=== PATIENT | male | born 1945 | race Caucasian/White ===

== ENCOUNTER → 2017-11-21 | Outpatient (CLI) | payer OTHER ==
[~2017-11-21] MED LIST: BRIM0.1S OPL; TIMO0.5S2 OPL
[2017-11-21 12:47] LABS: BASO % 0.2 %; BASO ABS # 0.02 K/uL (0-0.2); EOS % 0.1 %; EOS ABS # 0.01 K/uL (0-0.5); HEMATOCRIT 44.9 % (42-52); HEMOGLOBIN 15.6 g/dL (14.0-18.0); IG# 0.02 K/uL (0.00-0.02); LYMPH % 20.7 %; LYMPH ABS # 1.77 K/uL (1.2-3.4); MEAN CELL VOLUME 88.6 fL (80-100); MEAN CORPUSCULAR HEMOGLOBIN 30.8 pg (25-34); MEAN CORPUSCULAR HGB CONC 34.7 g/dl (32-36); MEAN PLATELET VOLUME 11.4 fL (7.4-10.4); MONO % 5.7 %; MONO ABS # 0.49 K/uL (0.11-0.59); NEUT % 73.1 %; NEUT ABS # 6.26 K/uL (1.4-6.5); PLATELET COUNT 194 K/uL (130-400); RED CELL DISTRIBUTION WIDTH CV 13.4 % (11.5-14.5); RED CELL DISTRIBUTION WIDTH SD 43.8 fL (36.4-46.3); WHITE BLOOD COUNT 8.57 K/uL (4.8-10.8)
[2017-11-21 13:07] LABS: ALBUMIN 4.1 gm/dl (3.4-5.0); ALT/SGPT 32 U/L (12-78); AST/SGOT 24 U/L (15-37); BLOOD UREA NITROGEN 16 mg/dl (7-18); CALCIUM 9.1 mg/dl (8.5-10.1); CARBON DIOXIDE 24 mmol/L (21-32); CREATININE 0.97 mg/dl (0.60-1.40); GLUCOSE 108 mg/dl (70-99); POTASSIUM 3.7 mmol/L (3.5-5.1); SODIUM 137 mmol/L (136-145)
[2017-11-21 13:17] LABS: ALKALINE PHOSPHATASE 87 U/L (45-117); TOTAL PROTEIN 8.3 gm/dl (6.4-8.2)
== END | disposition home or self-care (01) ==
LOC: C.LABPVFM 07:51
PROVIDERS: ATTEND Family Medicine
DX: R53.83 Other fatigue (principal); G47.9 Sleep disorder, unspecified

== ENCOUNTER 2020-05-05 13:06 | Observation (INO) ==
[2020-05-05] MEDS ORDERED: SODIUM CHLORIDE 0.9% 500 ML IV ONE ×3 (13:34→16:24)
[2020-05-05 14:05] LABS: Hematocrit (blood only) 33.4 % (42-52); Hemoglobin 10.2 g/dL (14.0-18.0); Immature Granulocytes # (auto) 0.07 K/uL (0.00-0.02); Immature Granulocytes % (auto) 0.5 %; Lymphocytes % (auto) 6.6 %; Mean Corpuscular Hemoglobin 25.2 pg (25-34); Mean Corpuscular Hgb Conc 30.5 g/dL (32-36); Mean Corpuscular Volume 82.5 fL (80-100); Mean Platelet Volume 10.2 fL (7.4-10.4); Monocytes # (auto) 0.37 K/uL (0.11-0.59); Monocytes % (auto) 2.5 %; Neutrophils # (auto) 13.62 K/uL (1.4-6.5); Neutrophils % (auto) 90.4 %; Platelet Count 249 K/uL (130-400); RDW Coefficient of Variation 23.3 % (11.5-14.5); RDW Standard Deviation 69.9 fL (36.4-46.3); Red Blood Count 4.05 M/uL (4.7-6.1); White Blood Count 15.06 K/uL (4.8-10.8)
[2020-05-05 14:13] LABS: Appearance Urine Clear (Clear); Bilirubin Urine Negative (Negative); Blood Urine Negative (Negative); Color Urine Yellow; Glucose Urine UA Negative (Negative); Ketones Urine Negative (Negative); Leukocyte Esterase Urine Negative (Negative); Nitrite Urine Negative (Negative); Protein Urine Negative (Negative); Specific Gravity Urine 1.011 (1.000-1.030); Urobilinogen Urine Negative (Negative)
[2020-05-05 14:16] LABS: INR 1.3 (0.9-1.1); Partial Thromboplastin Ratio 1.2; Prothrombin Time 13.5 Seconds (9.0-12.0)
[2020-05-05 14:23] LABS: Alanine Aminotransferase 52 U/L (12-78); Albumin Level 1.4 gm/dl (3.4-5.0); Aspartate Aminotransferase 214 U/L (15-37); BUN Creatinine Ratio 35.1 (10-20); Bilirubin Direct 0.6 mg/dl (0-0.2); Blood Urea Nitrogen 31 mg/dl (7-18); Calcium 8.7 mg/dl (8.5-10.1); Carbon Dioxide 25 mmol/L (21-32); Chloride 101 mmol/L (98-107); Est GFR (African American) 96.5; Est GFR (Non-African American) 83.3; Glucose 111 mg/dl (70-99); Lipase 841 U/L (73-393); Potassium 3.8 mmol/L (3.5-5.1); Sodium 139 mmol/L (136-145)
--- NOTE | 2020-05-05 14:24 | XRay Report ---
XR chest 1V portable CLINICAL HISTORY: Atypical chest pain COMPARISON STUDY: 04/29/2020 FINDINGS: There is a left subclavian central venous catheter unchanged in position. The cardiac and m ediastinal contours remain stable. There is a persistent right pleural effusion with associated right lower lobe atelectasis/consolidation. Underlying emphysema is suspected.[ IMPRESSION: 1. Pulmonary emphysema 2. Small right pleural effusion with associated right lower lobe atelectasis/consolidation ACT 112: Negative or not required by law. Electronically signed by: Blaise Chandler M.D. 05/05/2020 2:23 PM
[2020-05-05 14:32] LABS: Albumin Globulin Ratio 0.3 (0.9-2); Alkaline Phosphatase 251 U/L (45-117); Globulin 5.4 gm/dl (2.5-4.0); NT Pro B Type Natriuretic Pept 4731 pg/ml (0-900); Phosphorus 3.9 mg/dl (2.5-4.9); Total Protein 6.8 gm/dl (6.4-8.2); Troponin I < 0.015 ng/ml (0-0.045)
[2020-05-05 14:33] LABS: Anisocytosis Present
[2020-05-05 14:44] LABS: T4 Free Thyroxine 1.06 ng/dl (0.8-1.6)
[2020-05-05] MEDS ORDERED: OPTIRAY 320 125ml IV ONE (14:59)
--- NOTE | 2020-05-05 15:20 | CT Scan Report ---
CT ANGIOGRAPHY OF THE CHEST, PULMONARY EMBOLUS PROTOCOL CLINICAL HISTORY: Shortness of breath. Hypertension. Evaluate for pulmonary embolus. COMPARISON STUDY: Chest CT March 09, 2020. Chest radiograph May 05, 2020. TECHNIQUE: Following IV administration of 120 mL of Optiray-320, helical axial images of the chest we re obtained utilizing the pulmonary embolus protocol. Maximal intensity projections and sagittal and coronal reformats were viewed on an independent 3D workstation. IV contrast was administered withou t complication. Automated exposure control was utilized for the study. A dose lowering technique wa s utilized adhering to the principles of ALARA. CT DOSE: 962.63 mGy.cm FINDINGS: This exam is moderately compromised by respiratory motion. No central or lobar pulmonary e mboli are identified. The segmental and subsegmental pulmonary arteries are suboptimally assessed giv en respiratory motion. Mild cardiomegaly is noted. A left subclavian [id number] is in place. No en larged axillary, mediastinal or hilar lymph nodes are present. There is no pneumothorax. There are sm all bilateral pleural effusions. Right lower lobe opacity favors segmental atelectasis. The size and number of several pulmonary nodules has increased since CT of March 09, 2020. A 6 mm right lower lobe n odule on image [id number] is new since prior exam. An 8 mm left lower lobe nodule on image 89 previously measured 5 mm. No suspicious lesions within the bony thorax are noted. Extensive hepatic metastatic disease is better depicted on the CT of the abdomen and pelvis which will be reported separately. Per ihepatic ascites is noted. IMPRESSION: 1. No pulmonary emboli identified although segmental and subsegmental pulmonary arteries suboptimally assessed due to respiratory motion. 2. Small bilateral pleural effusions. Segmental right lower lobe opacity favors atelectasis. 3. Mild increase in size and number small pulmonary nodules since prior chest CT. These are suspiciou s for metastases. 4. Extensive hepatic metastatic disease, better depicted on the CT of the abdomen and pelvis which wi ll be reported separately. ACT 112: Negative or not required by law. Electronically signed by: Mack Joseph M.D. 05/05/2020 3:19 PM
--- NOTE | 2020-05-05 15:23 | CT Scan Report ---
CT SCAN OF THE ABDOMEN AND PELVIS WITH IV CONTRAST CLINICAL HISTORY: Generalized weakness. Colon cancer. COMPARISON STUDY: Abdominal CT dated 03/09/2020. TECHNIQUE: Following the IV administration of 120 cc of Optiray 320, CT scan of the abdomen and pelv is is performed from the lung bases to the proximal femora. Images are reviewed in the axial, sagitta l, and coronal planes. IV contrast was administered without complication. A dose lowering technique w as utilized adhering to the principles of ALARA. FINDINGS: Lung bases: The tip of a central venous infusion port terminates at the cavoatrial junction. The hear t is normal in size and without pericardial effusion. The coronary arteries are densely calcified. Th ere are small bilateral pleural effusions with associated atelectasis. Segmental atelectasis is noted the right lung base with elevation of the right hemidiaphragm. No airspace consolidation is seen typ ical for pneumonia. An 8 mm pulmonary nodule in the left lower lobe has increased in size from 03/09/20 20 and is consistent with a metastasis. Liver: The contrast-enhanced liver is enlarged and heterogeneous, measuring 25 cm in length. The live r is infiltrated by diffuse metastatic disease. There is no intrahepatic biliary ductal dilatation. T he hepatic veins and portal veins are patent. A 5 cm simple cyst is noted in the right lobe. Gallbladder: Unremarkable. Spleen: Normal in size and attenuation. Pancreas: Moderately atrophic and grossly unremarkable. Adrenal glands: Unremarkable. Kidneys: The contrast enhanced kidneys demonstrate mild cortical atrophy and are without hydronephros is. The kidneys enhance symmetrically. Abdominal vasculature: The abdominal aorta is normal in course and caliber noting mild atheroscleroti c calcification. Bowel: There is a large annular mass involving the transverse colon is seen on image #20 and 69. This measures 7.5 cm in length. Mildly enlarged pericolonic lymph nodes adjacent to the mass measure up t o 1 cm. There is no evidence of colonic obstruction. The small bowel appear normal in caliber. The ap pendix is normal as visualized. Peritoneum: There is a small volume of abdominopelvic ascites. No intraperitoneal free air is seen. T here is a fat-containing umbilical hernia. Lymphadenopathy: There is no upper abdominal, retroperitoneal, pelvic sidewall, or inguinal lymphaden opathy. Pelvic viscera: The prostate gland is enlarged and heterogeneous noting median lobe hypertrophy. The bladder wall is mildly thickened and trabeculated indicating chronic outlet obstruction. There is jayashree dence of previous left inguinal herniorrhaphy. Skeletal structures: The skeletal structures are osteopenic. Mild lumbosacral spondylosis is observed . There is a moderate compression deformity of T11. Mild compression deformities are noted in T12, L1 , L2, L3, and L4. No lytic or blastic lesions are seen. Soft tissues: There is mild body wall edema. IMPRESSION: 1. Hepatomegaly with evidence of diffuse hepatic metastatic disease. This is overall similar in appea brown to the 03/20/2020 examination. 2. Again seen is a large mass in the transverse colon. This is also similar in appearance to previous . There is no evidence of colonic obstruction. 3. Mildly enlarged pericolonic lymph nodes are again noted. These have modestly decreased in size fro m 03/09/2020. 4. A left lower lobe pulmonary metastasis has increased in size from 03/09/2020. 5. There is a small volume of abdominopelvic ascites. This is new from previous. 6. Small pleural effusions are new from previous. 7. Additional findings as above. ACT 112: Negative or not required by law. Electronically signed by: Kehinde Monzon M.D. 05/05/2020 3:22 PM
[2020-05-05] MEDS ORDERED: METOPROLOL TARTRATE 1 MG/ML VIAL IV STA ×2 (16:00→17:03)
--- NOTE | 2020-05-05 16:05 | Emergency Department Note ---
Impression & Plan Tachycardia, Dehydration, Metastatic disease, Peripheral edema, Hypoalbuminemia ED Provider Note NAME: NAOMY VILLATORO AGE: 74 SEX: M ARRIVES VIA: Walk-In INFORMANT: Patient, ED PROVIDER(S): Sanjeev Motley MD CHIEF COMPLAINT: Tachycardia PLAN: Disposition: Admit MEDICAL DECISION MAKING: The patient is a pleasant 74-year-old gentleman with a past medical history of recently diagnosed metastatic colon cancer currently undergoing chemotherapy (FOLFOX and Avastin) with first treatment on Saturday who presents emergency department for evaluation after home nurse who arrived to discontinue his infusion noted his heart rate to be in the 120s-130s with hypertension and so was referred to the emergency department. Patient has been followed for his tachycardia and edema and recent saw cardiology and had echo completed, which showed normal EF. He is on Metoprolol 25mg BID. The patient denies any particular complaints. The patient and his deny any fevers, chills, cough, congestion, nausea, vomiting, diarrhea, urinary symptoms. On arrival the patient is fatigued appearing but no acute distress, afebrile with heart rate in the 130-140s and vital signs otherwise stable. Initial EKG suspected to be sinus tachycardia with intermittent ectopic atrial beats with no overt acute ischemia. Chest x-ray does demonstrate pleural effusion in the setting of the patient's history of peripheral edema but no overt pneumonia or heart failure. WBC 15, nonspecific and decreased from prior value. H/H 10.2/33.4 similar to prior range of values. Platelets within normal limits. Chemistry without acidosis. BUN is 31 which is suggestive of component of dehydration despite the patient's third spacing in the setting of hypoalbuminemia with an albumin of 1.4. BNP is 4700 without prior values for comparison UA negative for infection. CTA of the chest was negative for PE. Otherwise CT of the abdomen pelvis redemonstrates the patient's known metastatic disease. Upon reevaluation the patient was feeling improved after IV fluid hydration with heart rate in the 100s. However upon attempt to repeat his EKG prior to discharge his heart rate again became tachycardic now to the 140s and appears regular. Suspect sinus tachycardia vs atrial tachycardia as some P waves appreciated and did improved initially with hydration. Paroxysmal aflutter/afib also possible. At this time I did reiterate to the patient that I would recommend admission however he is persistent that he would prefer to go home. He does take metoprolol twice daily and so we agreed to trial a dose of Lopressor but if unsuccessful he would agree to be admitted. Upon re-evaluation after 5mg IV lopressor and a total of 1L NSS patient gradually improved to upper 90s-100s. However, when repeat EKG was attempted his HR again increased to 130s-140s. Second dose was ordered. Given the patient's poor rate control, reasonable to admit for further management. He and his agreed. Case was discussed with Dr. Bess, admitting resident with Dr. Hanks, [facility] hospitalist, who will evaluate the patient for admission. Triage Nursing notes reviewed and agree them. Prior medical records reviewed Vital Signs: reviewed and remarkable for Tachycardia Differential diagnosis: Infection, dehydration, metabolic abnormality, hypo/hyperglycemia, electrolyte disturbance, anemia, hypoxia, cardiac sources, intracerebral event, toxicologic, neurologic, as well as other pathologies. ER treatment provided: See below. Diagnostics interpreted by me: ECG 1551: Sinus tachycardia with suspected atrial ectopic beats, 136 bpm, no overt ST elevation or depression, QTC 517, QRS 82. ECG 1700: Sinus tachycardia vs atrial tachycardia, 140 bpm, no overt ST elevation or depression. Cardiac Monitoring: An order for continuous cardiac monitoring was placed and demonstrated sinus tachycardia with suspected atrial ectopic beats, 136 bpm. Laboratory studies: See below Imaging studies: XR chest 1V portable CLINICAL HISTORY: Atypical chest pain COMPARISON STUDY: 04/29/2020 FINDINGS: There is a left subclavian central venous catheter unchanged in position. The cardiac and mediastinal contours remain stable. There is a persistent right pleural effusion with associated right lower lobe atelectasis/consolidation. Underlying emphysema is suspected.[ IMPRESSION: 1. Pulmonary emphysema 2. Small right pleural effusion with associated right lower lobe atelectasis/consolidation CT ANGIOGRAPHY OF THE CHEST, PULMONARY EMBOLUS PROTOCOL CLINICAL HISTORY: Shortness of breath. Hypertension. Evaluate for pulmonary embo jairo. COMPARISON STUDY: Chest CT March 09, 2020. Chest radiograph May 05, 2020. TECHNIQUE: Following IV administration of 120 mL of Optiray-320, helical axial images of the chest were obtained utilizing the pulmonary embolus protocol. Maximal intensity projections and sagittal and coronal reformats were viewed on an independent 3D workstation. IV contrast was administered without complication. Automated exposure control was utilized for the study. A dose lowering technique was utilized adhering to the principles of ALARA. CT DOSE: 962.63 mGy.cm FINDINGS: This exam is moderately compromised by respiratory motion. No central or lobar pulmonary emboli are identified. The segmental and subsegmental pulmonary arteries are suboptimally assessed given respiratory motion. Mild cardiomegaly is noted. A left subclavian [id number] is in place. No enlarged axillary, mediastinal or hilar lymph nodes are present. There is no pneumothorax. There are small bilateral pleural effusions. Right lower lobe opacity favors segmental atelectasis. The size and number of several pulmonary nodules has increased since CT of March 09, 2020. A 6 mm right lower lobe nodule on image [id number] is new since prior exam. An 8 mm left lower lobe nodule on image 89 previously measured 5 mm. No suspicious lesions within the bony thorax are noted. Extensive hepatic metastatic disease is better depicted on the CT of the abdomen and pelvis which will be reported separately. Perihepatic ascites is noted. IMPRESSION: 1. No pulmonary emboli identified although segmental and subsegmental pulmonary arteries suboptimally assessed due to respiratory motion. 2. Small bilateral pleural effusions. Segmental right lower lobe opacity favors atelectasis. 3. Mild increase in size and number small pulmonary nodules since prior chest CT. These are suspicious for metastases. 4. Extensive hepatic metastatic disease, better depicted on the CT of the abdomen and pelvis which will be reported separately. ACT 112: Negative or not required by law. CT SCAN OF THE ABDOMEN AND PELVIS WITH IV CONTRAST CLINICAL HISTORY: Generalized weakness. Colon cancer. COMPARISON STUDY: Abdominal CT dated 03/09/2020. TECHNIQUE: Following the IV administration of 120 cc of Optiray 320, CT scan of the abdomen and pelvis is performed from the lung bases to the proximal femora. Images are reviewed in the axial, sagittal, and coronal planes. IV contrast was administered without complication. A dose lowering technique was utilized adhering to the principles of ALARA. FINDINGS: Lung bases: The tip of a central venous infusion port terminates at the cavoatrial junction. The heart is normal in size and without pericardial effusion. The coronary arteries are densely calcified. There are small bilateral pleural effusions with associated atelectasis. Segmental atelectasis is noted the right lung base with elevation of the right hemidiaphragm. No airspace consolidation is seen typical for pneumonia. An 8 mm pulmonary nodule in the left lower lobe has increased in size from 03/09/2020 and is consistent with a metastasis. Liver: The contrast-enhanced liver is enlarged and heterogeneous, measuring 25 cm in length. The liver is infiltrated by diffuse metastatic disease. There is no intrahepatic biliary ductal dilatation. The hepatic veins and portal veins are patent. A 5 cm simple cyst is noted in the right lobe. Gallbladder: Unremarkable. Spleen: Normal in size and attenuation. Pancreas: Moderately atrophic and grossly unremarkable. Adrenal glands: Unremarkable. Kidneys: The contrast enhanced kidneys demonstrate mild cortical atrophy and are without hydronephrosis. The kidneys enhance symmetrically. Abdominal vasculature: The abdominal aorta is normal in course and caliber noting mild atherosclerotic calcification. Bowel: There is a large annular mass involving the transverse colon is seen on image #20 and 69. This measures 7.5 cm in length. Mildly enlarged pericolonic lymph nodes adjacent to the mass measure up to 1 cm. There is no evidence of colonic obstruction. The small bowel appear normal in caliber. The appendix is normal as visualized. Peritoneum: There is a small volume of abdominopelvic ascites. No intraperitoneal free air is seen. There is a fat-containing umbilical hernia. Lymphadenopathy: There is no upper abdominal, retroperitoneal, pelvic sidewall, or inguinal lymphadenopathy. Pelvic viscera: The prostate gland is enlarged and heterogeneous noting median lobe hypertrophy. The bladder wall is mildly thickened and trabeculated indicating chronic outlet obstruction. There is evidence of previous left inguinal herniorrhaphy. Skeletal structures: The skeletal structures are osteopenic. Mild lumbosacral spondylosis is observed. There is a moderate compression deformity of T11. Mild compression deformities are noted in T12, L1, L2, L3, and L4. No lytic or blast ic lesions are seen. Soft tissues: There is mild body wall edema. IMPRESSION: 1. Hepatomegaly with evidence of diffuse hepatic metastatic disease. This is overall similar in appearance to the 03/20/2020 examination. 2. Again seen is a large mass in the transverse colon. This is also similar in a ppearance to previous. There is no evidence of colonic obstruction. 3. Mildly enlarged pericolonic lymph nodes are again noted. These have modestly decreased in size from 03/09/2020. 4. A left lower lobe pulmonary metastasis has increased in size from 03/09/2020. 5. There is a small volume of abdominopelvic ascites. This is new from previous. 6. Small pleural effusions are new from previous. 7. Additional findings as above. ACT 112: Negative or not required by law. Consultation(s): Case was discussed with Dr. Bess, admitting resident with Dr. Arenas, [facility] hospitalist, who will evaluate the patient for admission. HPI: The patient is a pleasant 74-year-old gentleman with a past medical history of recently diagnosed metastatic colon cancer currently undergoing chemotherapy (FOLFOX and Avastin) with first treatment on Saturday who presents emergency department for evaluation after home nurse who arrived to discontinue his infus ion noted his heart rate to be in the 120s-130s with hypertension and so was referred to the emergency department. Patient has been followed for his tachycardia and edema and recent saw cardiology and had echo completed, which showed normal EF. He is on Metoprolol 25mg BID. The patient denies any p articular complaints. The patient and his deny any fevers, chills, cough, congestion, nausea, vomiting, diarrhea, urinary symptoms. ROS: See above HPI for pertinent positives & negatives. A total of 10 systems reviewed and were otherwise negative. PAST MEDICAL HISTORY:See Below PAST SURGICAL HISTORY:See Below FAMILY HISTORY:See Below SOCIAL HISTORY:See Below HOME MEDICATIONS:See Below ALLERGIES:See Below VITALS:See Below PHYSICAL EXAMINATION: GENERAL: Awake, alert, chronically ill-appearing, in no distress HENT: Normocephalic, atraumatic. Oropharynx with dry mucous membranes and otherwise unremarkable. EYES: Normal conjunctiva. Sclera non-icteric. NECK: Supple. No nuchal rigidity. FROM. No JVD. RESPIRATORY: Diminished at bases but otherwise clear to auscultation. CARDIAC: Tachycardic rate, normal rhythm. Extremities warm and well perfused. Pulses equal. ABDOMEN: Soft, non-distended. No tenderness to palpation. No rebound or guarding. No masses. RECTAL: Deferred. MUSCULOSKELETAL: Chest examination reveals no tenderness. The back is symme trical on inspection without obvious abnormality. There is no CVA tenderness to palpation. No joint edema. LOWER EXTREMITIES: Calves are equal size bilaterally and non-tender. 3+ pitting edema. No discoloration. NEURO: Normal sensorium. No sensory or motor deficits noted. SKIN: No rash or jaundice noted. ED COURSE: Critical Care: I have personally spent greater than 35 minutes of critical care time in the direct management of this patient. This includes bedside care, interpretation of diagnostic studies, and testing, discussion with consultants, patient, and family members, and other required patient management activities. This 35 minut es is in excess of all separately billable procedures. Sanjeev Motley MD Past Med/Surg History Medical History Anemia BPH (benign prostatic hyperplasia) per records/ denies Colon cancer Glaucoma Hyperlipidemia Metastases to the liver Surgical History History of hernia surgery x 2 right and left ingunial Hx of cataract surgery left Family History Denies family history of Ovarian cancer Prostate cancer Diabetes Breast cancer Colorectal cancer Hypertension Social History Smoking Status: Never smoker Tobacco Type: Cigarettes Second Hand Exposure: No; Hx Alcohol Use: No Hx Substance Use: No Preferred Language: Libyan Communication Ability: Effective Ibm Bpm Developer Required: No Beliefs That Will Affect Care: None marital status: Current Living Situation: Spouse current occupational status: retired Feels Safe at Home: Yes caffeine: No Dental Care, Regularly: No Physical Activity Frequency: 1-2 Times per Week Seatbelt Use: always Sunscreen Use: No Allergies Allergies Allergy/AdvReac Type Severity Reaction Status Date / Time ciprofloxacin Allergy Intermediate Rash Verified 05/05/20 14:48 Home Meds Home Medications Medication Instructions Recorded Confirmed dorzolamide 2 % eye drops 1 drp OPL TID ml 05/19/19 05/05/20 latanoprost 0.005 % eye drops 1 drp OPL HS ml 05/19/19 05/05/20 cholecalciferol (vitamin D3) 100 100 mcg PO QAM 04/11/20 05/05/20 mcg (4,000 unit) capsule furosemide 40 mg PO QAM 04/26/20 05/05/20 ondansetron HCl [Zofran] 4 mg PO DAILY PRN 04/26/20 05/05/20 potassium chloride [Klor-Con 10] 10 meq PO QAM 04/26/20 05/05/20 prochlorperazine maleate 10 mg PO Q6H PRN 04/26/20 05/05/20 Chemo Iv 0 mg IV UD 05/05/20 05/05/20 Previous Rx's Medication Instructions Recorded metoprolol tartrate 25 mg tablet 25 mg PO BID #60 tab 04/28/20 Results & Data (ED) Vital Signs Vital Signs - 24 hr 05/05/20 13:08 05/05/20 13:20 05/05/20 13:21 Temperature 36.4 C L Temperature Source Oral Pulse Rate 108 H 135 H 134 H Pulse Rate from SpO2 Sensor 132 H Respiratory Rate 20 21 18 Respiratory Effort / Characteristics Non-Labored Spontaneous Respiratory Depth Normal Blood Pressure 124/82 125/91 Blood Pressure Mean 96 106 Pulse Oximetry 98 96 Oxygen Delivery Method Sepsis Recent Fever Within 48 Hours No Sepsis New/Unexplained Change in Mental Status No Sepsis Action Taken by Nursing No Action Required 05/05/20 13:30 05/05/20 13:45 05/05/20 13:55 Temperature Temperature Source Pulse Rate 136 H 134 H Pulse Rate from SpO2 Sensor 129 H Respiratory Rate 19 20 Respiratory Effort / Characteristics Respiratory Depth Blood Pressure Blood Pressure Mean Pulse Oximetry 97 Oxygen Delivery Method Room Air Sepsis Recent Fever Within 48 Hours Sepsis New/Unexplained Change in Mental Status Sepsis Action Taken by Nursing 05/05/20 14:02 05/05/20 14:07 05/05/20 14:15 Temperature Temperature Source Pulse Rate 144 H 100 H Pulse Rate from SpO2 Sensor 101 H Respiratory Rate 19 19 Respiratory Effort / Characteristics Respiratory Depth Blood Pressure 128/89 Blood Pressure Mean 97 Pulse Oximetry 98 Oxygen Delivery Method Room Air Sepsis Recent Fever Within 48 Hours Sepsis New/Unexplained Change in Mental Status Sepsis Action Taken by Nursing 05/05/20 14:16 05/05/20 14:30 05/05/20 14:31 Temperature Temperature Source Pulse Rate 138 H 130 H 130 H Pulse Rate from SpO2 Sensor 137 H 130 H 130 H Respiratory Rate 19 19 19 Respiratory Effort / Characteristics Respiratory Depth Blood Pressure 133/98 Blood Pressure Mean 110 Pulse Oximetry 97 98 97 Oxygen Delivery Method Sepsis Recent Fever Within 48 Hours Sepsis New/Unexplained Change in Mental Status Sepsis Action Taken by Nursing 05/05/20 14:45 05/05/20 14:46 05/05/20 15:07 Temperature Temperature Source Pulse Rate 136 H 135 H 106 H Pulse Rate from SpO2 Sensor 136 H 135 H Respiratory Rate 21 21 8 L Respiratory Effort / Characteristics Respiratory Depth Blood Pressure 141/106 H Blood Pressure Mean 116 Pulse Oximetry 99 100 Oxygen Delivery Method Sepsis Recent Fever Within 48 Hours Sepsis New/Unexplained Change in Mental Status Sepsis Action Taken by Nursing 05/05/20 15:08 05/05/20 15:15 05/05/20 15:16 Temperature Temperature Source Pulse Rate 105 H 112 H Pulse Rate from SpO2 Sensor 106 H 114 H Respiratory Rate 25 H 24 Respiratory Effort / Characteristics Respiratory Depth Blood Pressure 130/91 151/101 H Blood Pressure Mean 101 126 Pulse Oximetry 97 96 Oxygen Delivery Method Sepsis Recent Fever Within 48 Hours Sepsis New/Unexplained Change in Mental Status Sepsis Action Taken by Nursing 05/05/20 15:22 05/05/20 15:30 05/05/20 15:45 Temperature Temperature Source Pulse Rate 141 H 102 H 104 H Pulse Rate from SpO2 Sensor 102 H Respiratory Rate 29 H 21 25 H Respiratory Effort / Characteristics Respiratory Depth Blood Pressure 139/109 H 134/92 133/92 Blood Pressure Mean 117 104 110 Pulse Oximetry 96 96 Oxygen Delivery Method Sepsis Recent Fever Within 48 Hours Sepsis New/Unexplained Change in Mental Status Sepsis Action Taken by Nursing 05/05/20 15:46 05/05/20 16:00 05/05/20 16:15 Temperature Temperature Source Pulse Rate 106 H 149 H 141 H Pulse Rate from SpO2 Sensor 106 H 146 H 141 H Respiratory Rate 23 34 H 22 Respiratory Effort / Characteristics Respiratory Depth Blood Pressure Blood Pressure Mean Pulse Oximetry 97 98 95 Oxygen Delivery Method Sepsis Recent Fever Within 48 Hours Sepsis New/Unexplained Change in Mental Status Sepsis Action Taken by Nursing 05/05/20 16:16 05/05/20 16:17 05/05/20 16:30 Temperature Temperature Source Pulse Rate 141 H 143 H 131 H Pulse Rate from SpO2 Sensor 143 H 131 H Respiratory Rate 24 23 Respiratory Effort / Characteristics Respiratory Depth Blood Pressure 139/106 H 139/106 H 134/100 Blood Pressure Mean 117 107 Pulse Oximetry 96 96 Oxygen Delivery Method Sepsis Recent Fever Within 48 Hours Sepsis New/Unexplained Change in Mental Status Sepsis Action Taken by Nursing 05/05/20 16:31 05/05/20 16:49 05/05/20 16:50 Temperature Temperature Source Pulse Rate 131 H 129 H 132 H Pulse Rate from SpO2 Sensor 131 H Respiratory Rate 22 24 25 H Respiratory Effort / Characteristics Respiratory Depth Blood Pressure 137/102 H Blood Pressure Mean 115 Pulse Oximetry 95 Oxygen Delivery Method Sepsis Recent Fever Within 48 Hours Sepsis New/Unexplained Change in Mental Status Sepsis Action Taken by Nursing 05/05/20 17:00 05/05/20 17:01 05/05/20 17:15 Temperature Temperature Source Pulse Rate 99 H 135 H 133 H Pulse Rate from SpO2 Sensor Respiratory Rate 27 H 24 23 Respiratory Effort / Characteristics Respiratory Depth Blood Pressure 142/89 H 135/99 Blood Pressure Mean 104 105 Pulse Oximetry 96 Oxygen Delivery Method Room Air Sepsis Recent Fever Within 48 Hours Sepsis New/Unexplained Change in Mental Status Sepsis Action Taken by Nursing 05/05/20 17:16 05/05/20 17:30 05/05/20 17:31 Temperature Temperature Source Pulse Rate 132 H 132 H 131 H Pulse Rate from SpO2 Sensor Respiratory Rate 24 22 21 Respiratory Effort / Characteristics Respiratory Depth Blood Pressure 138/102 H Blood Pressure Mean 109 Pulse Oximetry Oxygen Delivery Method Sepsis Recent Fever Within 48 Hours Sepsis New/Unexplained Change in Mental Status Sepsis Action Taken by Nursing 05/05/20 17:44 05/05/20 17:45 05/05/20 18:00 Temperature Temperature Source Pulse Rate 139 H 103 H 130 H Pulse Rate from SpO2 Sensor Respiratory Rate 27 H 30 H Respiratory Effort / Characteristics Respiratory Depth Blood Pressure 138/102 H Blood Pressure Mean Pulse Oximetry Oxygen Delivery Method Sepsis Recent Fever Within 48 Hours Sepsis New/Unexplained Change in Mental Status Sepsis Action Taken by Nursing 05/05/20 18:15 05/05/20 18:30 Temperature Temperature Source Pulse Rate 128 H 127 H Pulse Rate from SpO2 Sensor Respiratory Rate 25 H 23 Respiratory Effort / Characteristics Respiratory Depth Blood Pressure Blood Pressure Mean Pulse Oximetry Oxygen Delivery Method Sepsis Recent Fever Within 48 Hours Sepsis New/Unexplained Change in Mental Status Sepsis Action Taken by Nursing Laboratory Data Attestation: I reviewed the patient's lab results. Result diagrams: 05/05/20 13:45 05/05/20 13:45 Lab Results 05/05/20 05/05/20 05/05/20 Range/Units 13:45 13:45 13:45 WBC 15.06 H (4.8-10.8) K/uL RBC 4.05 L (4.7-6.1) M/uL Hgb 10.2 L (14.0-18.0) g/dL Hct 33.4 L (42-52) % MCV 82.5 (80-100) fL MCH 25.2 (25-34) pg MCHC 30.5 L (32-36) g/dL RDW Std Deviation 69.9 H (36.4-46.3) fL RDW Coeff of Kamille 23.3 H (11.5-14.5) % Plt Count 249 (130-400) K/uL MPV 10.2 (7.4-10.4) fL Immature Gran % (Auto) 0.5 % Neut % (Auto) 90.4 % Lymph % (Auto) 6.6 % [place] % (Auto) 2.5 % Eos % (Auto) 0.0 % Baso % (Auto) 0.0 % Neut # (Auto) 13.62 H (1.4-6.5) K/uL Lymph # (Auto) 1.00 L (1.2-3.4) K/uL [place] # (Auto) 0.37 (0.11-0.59) K/uL Eos # (Auto) 0.00 (0-0.5) K/uL Baso # (Auto) 0.00 (0-0.2) K/uL Immature Gran # (Auto) 0.07 H (0.00-0.02) K/uL Anisocytosis Present PT 13.5 H (9.0-12.0) Seconds INR 1.3 H (0.9-1.1) APTT 33.0 H (21.0-31.0) Seconds PTT Ratio 1.2 Sodium 139 (136-145) mmol/L Potassium 3.8 (3.5-5.1) mmol/L Chloride 101 (98-107) mmol/L Carbon Dioxide 25 (21-32) mmol/L Anion Gap 13.0 H (3-11) BUN 31 H (7-18) mg/dl Creatinine 0.90 (0.6-1.4) mg/dl Est Cr Clr Drug Dosing Not Reportable Est GFR ( Amer) 96.5 Est GFR (Non-Af Amer) 83.3 BUN/Creatinine Ratio 35.1 H (10-20) Glucose 111 H (70-99) mg/dl Calcium 8.7 (8.5-10.1) mg/dl Phosphorus 3.9 (2.5-4.9) mg/dl Magnesium 2.0 (1.8-2.4) mg/dl Total Bilirubin 1.0 (0.2-1) mg/dl Direct Bilirubin 0.6 H (0-0.2) mg/dl AST 214 H (15-37) U/L ALT 52 (12-78) U/L Alkaline Phosphatase 251 H (45-117) U/L Troponin I < 0.015 (0-0.045) ng/ml NT-Pro-B Natriuret Pep 4731 H (0-900) pg/ml Total Protein 6.8 (6.4-8.2) gm/dl Albumin 1.4 L (3.4-5.0) gm/dl Globulin 5.4 H (2.5-4.0) gm/dl Albumin/Globulin Ratio 0.3 L (0.9-2) Lipase 841 H (73-393) U/L TSH 5.340 H (0.300-4.500) uIu/ml Free T4 1.06 (0.8-1.6) ng/dl Urine Color Urine Appearance (Clear) Urine pH (4.5-7.5) Ur Specific [place] (1.000-1.030) Urine Protein (Negative) Urine Glucose (UA) (Negative) Urine Ketones (Negative) Urine Blood (Negative) Urine Nitrite (Negative) Urine Bilirubin (Negative) Urine Urobilinogen (Negative) Ur Leukocyte Esterase (Negative) 05/05/20 Range/Units 14:00 WBC (4.8-10.8) K/uL RBC (4.7-6.1) M/uL Hgb (14.0-18.0) g/dL Hct (42-52) % MCV (80-100) fL MCH (25-34) pg MCHC (32-36) g/dL RDW Std Deviation (36.4-46.3) fL RDW Coeff of Kamille (11.5-14.5) % Plt Count (130-400) K/uL MPV (7.4-10.4) fL Immature Gran % (Auto) % Neut % (Auto) % Lymph % (Auto) % [place] % (Auto) % Eos % (Auto) % Baso % (Auto) % Neut # (Auto) (1.4-6.5) K/uL Lymph # (Auto) (1.2-3.4) K/uL [place] # (Auto) (0.11-0.59) K/uL Eos # (Auto) (0-0.5) K/uL Baso # (Auto) (0-0.2) K/uL Immature Gran # (Auto) (0.00-0.02) K/uL Anisocytosis PT (9.0-12.0) Seconds INR (0.9-1.1) APTT (21.0-31.0) Seconds PTT Ratio Sodium (136-145) mmol/L Potassium (3.5-5.1) mmol/L Chloride (98-107) mmol/L Carbon Dioxide (21-32) mmol/L Anion Gap (3-11) BUN (7-18) mg/dl Creatinine (0.6-1.4) mg/dl Est Cr Clr Drug Dosing Est GFR ( Amer) Est GFR (Non-Af Amer) BUN/Creatinine Ratio (10-20) Glucose (70-99) mg/dl Calcium (8.5-10.1) mg/dl Phosphorus (2.5-4.9) mg/dl Magnesium (1.8-2.4) mg/dl Total Bilirubin (0.2-1) mg/dl Direct Bilirubin (0-0.2) mg/dl AST (15-37) U/L ALT (12-78) U/L Alkaline Phosphatase (45-117) U/L Troponin I (0-0.045) ng/ml NT-Pro-B Natriuret Pep (0-900) pg/ml Total Protein (6.4-8.2) gm/dl Albumin (3.4-5.0) gm/dl Globulin (2.5-4.0) gm/dl Albumin/Globulin Ratio (0.9-2) Lipase (73-393) U/L TSH (0.300-4.500) uIu/ml Free T4 (0.8-1.6) ng/dl Urine Color Yellow Urine Appearance Clear (Clear) Urine pH 5.0 (4.5-7.5) Ur Specific [place] 1.011 (1.000-1.030) Urine Protein Negative (Negative) Urine Glucose (UA) Negative (Negative) Urine Ketones Negative (Negative) Urine Blood Negative (Negative) Urine Nitrite Negative (Negative) Urine Bilirubin Negative (Negative) Urine Urobilinogen Negative (Negative) Ur Leukocyte Esterase Negative (Negative) Administered Medications Discontinued Medications Albumin Human (Albumin Human 25% 12.5 Gm/50 Ml Vial) Confirm Administered Dose 12.5 gm IV .STK-MED ONE Stop: 05/05/20 19:37 Last Admin: 05/05/20 19:54 Dose: 12.5 gm Documented by: [id number] Sodium Chloride (Nss) 500 mls @ 999 mls/hr IV .Q31M ONE Stop: 05/05/20 14:04 Last Infusion: 05/05/20 14:39 Dose: 0 mls/hr Documented by: [id number] Admin: 05/05/20 14:08 Dose: 999 mls/hr Documented by: [id number] Sodium Chloride (Nss) 500 mls @ 999 mls/hr IV .Q31M ONE Stop: 05/05/20 16:01 Last Admin: 05/05/20 15:39 Dose: Not Given Documented by: [id number] Sodium Chloride (Nss) 500 mls @ 999 mls/hr IV .Q31M ONE Stop: 05/05/20 16:54 Last Infusion: 05/05/20 20:47 Dose: 0 mls/hr Documented by: [id number] Admin: 05/05/20 17:05 Dose: 999 mls/hr Documented by: [id number] Albumin Human (Albumin 25%) 50 mls @ 50 mls/hr IV ONE ONE Stop: 05/05/20 19:45 Last Admin: 05/05/20 19:56 Dose: Not Given Documented by: [id number] Ioversol (Optiray 320 125ml) 120 ml IV ONCE ONE Stop: 05/05/20 15:00 Last Admin: 05/05/20 15:00 Dose: 120 ml Documented by: [id number] Metoprolol Tartrate (Metoprolol Tartrate 1 Mg/Ml Vial) 5 mg IV NOW STA Stop: 05/05/20 16:01 Last Admin: 05/05/20 16:16 Dose: 5 mg Documented by: [id number] Metoprolol Tartrate (Metoprolol Tartrate 1 Mg/Ml Vial) 5 mg IV NOW STA Stop: 05/05/20 17:04 Last Admin: 05/05/20 17:44 Dose: 5 mg Documented by: [id number] Blood Pressure Blood Pressure Findings: Elevated blood pressure Blood Pressure Disposition: elevated BP felt to be situational Discharge Plan Visit Data Chief Complaint: Hypertension Stated Complaint: RAPID HEARTRATE, HIGH BP ED Provider: Sanjeev Motley Discharge Problem: Tachycardia, Dehydration, Metastatic disease, Peripheral edema, Hypoalbuminemia Patient Disposition: Admitted As Inpatient Condition: Good Discharge Instructions Interventions: ED Discharge Assessment Last Done: 05/05/20 19:59 Discharge Problem: Metastatic disease Qualifiers: Area of secondary neoplastic involvement: digestive structure Digestive structure secondary neoplasm location: metastatic to liver Qualified Code(s): C78.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
--- NOTE | 2020-05-05 16:18 | Electrocardiogram Report ---
Test Reason : Blood Pressure : / mmHG Vent. Rate : 136 BPM Atrial Rate : 144 BPM P-R Int : 000 ms QRS Dur : 082 ms QT Int : 344 ms P-R-T Axes : 000 020 000 degrees QTc Int : 517 ms Supraventricular tachycardia (probably sinus or atrial tachycardia) with occasional Premature atrial complexes Abnormal ECG When compared with ECG of 09-MAR-2020 13:53, Premature atrial complexes now present Otherwise no significant change Reconfirmed by Genaro Bruno ([id number]) on 05/06/2020 10:04:53 AM Referred By: Madison Scott Confirmed By:Genaro Bruno
--- NOTE | 2020-05-05 18:02 | History & Physical Report ---
Date of Service May 05, 2020 Assessment & Plan (1) Tachycardia: Murray Luna is a 74-year-old male with a past medical history of emphysema, vertebral compression fracture, BPH, chronic mild leukocytosis, and recently diagnosed metastatic colon cancer with mets to liver and concern for me ts to lung who presents to the hospital after referral from his [place] physician for tachycardia appreciated by his home health nurse. Sinus vs atrial tachycardia,? 2/2 intravascular depletion Patient with recent history of sinus tachycardia, however his heart rate was in the 60s and previously normal prior to March 2020 Initially responded to 500 cc fluid challenge in ED, but then up trended back to 130s twice. Albumin 1.8, may be intravascularly depleted from third spacing. BUN/creatinine ratio elevated. Trial albumin/NSS bolus to see if fluid responsiveness is prolonged with single dose of albumin. Patient asymptomatic, blood pressure elevated Patient had a cardiac evaluation prior to port placement, echo 7 days ago with preserved EF Hold Lasix, patient has not had any benefit to his leg edema since starting Low suspicion for infectious etiology, patient afebrile without clinical signs of infection. Pulmonary effusion evaluation as below See if additional metoprolol in the ED. If fluid volume adequate, and not improving with above trial rate control with close monitoring of pressure. Colon cancer with mets to liver, concern for lung metastasis CT-C:No pulmonary emboli identified although segmental and subsegmental pulmonary arteries suboptimally assessed due to respiratory motion. Small bilateral pleural effusions. Segmental right lower lobe opacity favors atelectasis. Mild increase in size and number small pulmonary nodules since prior chest CT. These are suspicious for metastases. - CT-A/P: Hepatomegaly with evidence of diffuse hepatic metastatic disease. This is overall similar in appearance to the 03/20/2020 examination. Again seen is a large mass in the transverse colon. This is also similar in appearance to previous. There is no evidence of colonic obstruction. Mildly enlarged pericolonic lymph nodes are again noted. These have modestly decreased in size from 03/09/2020. A left lower lobe pulmonary metastasis has increased in size from 03/09/2020. There is a small volume of abdominopelvic ascites. This is new from previous. Small pleural effusions are new from previous. Following with Dr. Cabral and [facility]. Undergoing FOLFOX + Avastin therapy. Elevated AST, INR 1.3, elevated alk phos with impaired albumin/synthetic function likely 2/2 extensive hepatic metastasis. - Follow clinically, no change in management at this time. -Next chemo scheduled for Sept 8th Pulmonary effusion, right lower consolidation/compression favoring atelectasis Patient with procalcitonin 1.18 and chronic leukocytosis noted on 04/21/2020. Chest x-ray clear at that time. Patient denies fever, chills, night sweats, cough, change in shortness of breath, shortness of breath at rest Repeat pro-Dionicio for trend, if uptrending start empiric antibiotics. Defer at this time. Pro-Dionicio baseline may be slightly elevated due to chronic disease and cancer O2 as needed, if desat/tachypneic especially with fluid trials as above trial BiPAP 5/10 PRN Peripheral edema SCDs to thigh May use suzan wrap bilaterally Emphysema - No hx tobacco abuse, denies dust occupational exposure - No pulm sx, no hx of inhalers - Follow clinically Insomnia Patient expresses difficulty with sleep, has trialed various sleep remedies including melatonin with no benefit. Would like a low-dose of something for sleep, risks/benefits given his underlying cardiac rhythm and potential QT prolongation discussed. Patient would like a trial of Seroquel 12.51 after risk/benefit discussion DVT prophylaxis: Heparin subcu Diet: Regular, boost supplementation CODE STATUS: DNR/DNI, discussed with patient and his present Disposition: Medical/surgical with telemetry (2) Metastatic disease: (3) Dehydration: (4) Peripheral edema: (5) Encounter for pre-operative examination: (6) Metastases to the liver: (7) Colon cancer: (8) Anemia: (9) Fracture of lumbar vertebra: History of Present Illness Chief Complaint: tachycardia Primary Care Provider: AARON Aguilar Murray Luna is a 74-year-old male with a past medical history of emphysema, vertebral compression fracture, BPH, chronic mild leukocytosis, and recently diagnosed metastatic colon cancer with mets to liver and concern for mets to wesely g who presents to the hospital after referral from his [place] physician for tachycardia appreciated by his home health nurse. Mr. Luna reports that he has been told that his heart rate is fast before, but he denies ever having any symptoms of this. He denies lightheadedness, dizziness, feeling of passing out or nearly passing out, chest pain, chest pressure, and palpitations. He denies shortness of breath at rest, endorses that he is easily fatigued and winded with exertion but denies shortness of breath otherwise. He denies cough. He denies any change in his shortness of breath with exertion. He denies fever, chills, night sweats. He has not had any recent sick contacts.He was recently diagnosed with colon cancer with mets to liver. He has had a port placed in his left subclavian, and recently finished his first round of chemotherapy with FOLFOX plus. [facility] Medical history: Reviewed Surgical history: Reviewed Medications: Reviewed Allergies: Reviewed, pertinent positive for rash to ciprofloxacin Social history: Denies tobacco, alcohol, and recreational drug use. Lives at home with his and son. No recent sick contacts. CODE STATUS: DNR/DNI, discussed with patient and his who is present at bedside. Allergies Allergy/AdvReac Type Severity Reaction Status Date / Time ciprofloxacin Allergy Intermediate Rash Verified 05/05/20 14:48 Home Medications Home Medications Medication Instructions Recorded Confirmed Type dorzolamide 2 % eye drops 1 drp OPL TID ml 05/19/19 05/05/20 History latanoprost 0.005 % eye drops 1 drp OPL HS ml 05/19/19 05/05/20 History cholecalciferol (vitamin D3) 100 100 mcg PO QAM 04/11/20 05/05/20 History mcg (4,000 unit) capsule furosemide 40 mg PO QAM 04/26/20 05/05/20 History ondansetron HCl [Zofran] 4 mg PO DAILY PRN 04/26/20 05/05/20 History potassium chloride [Klor-Con 10] 10 meq PO QAM 04/26/20 05/05/20 History prochlorperazine maleate 10 mg PO Q6H PRN 04/26/20 05/05/20 History metoprolol tartrate 25 mg tablet 25 mg PO BID #60 tab 04/28/20 05/05/20 Rx Chemo Iv 0 mg IV UD 05/05/20 05/05/20 History Past Med/Surg History Medical History Anemia BPH (benign prostatic hyperplasia) per records/ denies Colon cancer Glaucoma Hyperlipidemia Metastases to the liver Surgical History History of hernia surgery x 2 right and left ingunial Hx of cataract surgery left Family History Denies family history of Ovarian cancer Prostate cancer Diabetes Breast cancer Colorectal cancer Hypertension Social History Smoking Status: Never smoker Tobacco Type: Cigarettes Second Hand Exposure: No; Do You Dip or Chew Tobacco: No; Tobacco Cessation Education Requested by Patient: No Hx Alcohol Use: No Hx Substance Use: No Preferred Language: [place] Island[place] Communication Ability: Effective Plumbing Contractor Required: No Beliefs That Will Affect Care: None marital status: Current Living Situation: Spouse current occupational status: retired Other Information That Helps Us Care for You: No Feels Safe at Home: Yes Safety Concerns: Feels Safe At This Time caffeine: No Dental Care, Regularly: No Physical Activity Frequency: 1-2 Times per Week Seatbelt Use: always Sunscreen Use: No Review of Systems Review of Systems: All systems reviewed & are unremarkable except as noted in HPI & below Physical Exam Physical Exam: General: A&Ox3. NAD. Cooperative. Port present at left upper chest, subclavian. Nontender, no erythema. HEENT: Atraumatic, normocephalic. Pupils equal and reactive to light and accommodation. Extraocular movements intact without nystagmus. Speech fluent, normal phonation. Tongue protrudes midline. Mucous membranes tacky. Pulm: CTAB A&P, diminished at the base bilaterally. -wheezes, -rales, -rhonchi. Symmetrical chest rise. No increase work of breathing. No respiratory distress. Cardiac: Tachycardic, -mrg. Radial pulses intact and symmetrical. Abdominal: Nontender, soft. BS present. Extremities: Bilateral severe pitting edema to the knee. PT pulses difficult to appreciate due to edema. Ankle dorsiflexion/plantar flexion intact 5/5, hip flexion 4+/5 bilaterally. Counter Stitcher strength 5/5 bilaterally, sensation to soft touch intact in fingertips and toes bilaterally without asymmetry. Results & Data Results & Data ([facility]) Vital Signs (Past 12 Hours) Vital Signs Temp Pulse Resp BP Pulse Ox 05/05/20 17:44 139 H 138/102 H 05/05/20 17:01 135 H 24 96 05/05/20 17:00 99 H 27 H 142/89 H 05/05/20 16:50 132 H 25 H 137/102 H 05/05/20 16:49 129 H 24 05/05/20 16:31 131 H 22 95 05/05/20 16:30 131 H 23 134/100 96 05/05/20 16:17 143 H 24 139/106 H 96 05/05/20 16:16 141 H 139/106 H 05/05/20 16:15 141 H 22 95 05/05/20 16:00 149 H 34 H 98 05/05/20 15:46 106 H 23 97 05/05/20 15:45 104 H 25 H 133/92 96 05/05/20 15:30 102 H 21 134/92 96 05/05/20 15:22 141 H 29 H 139/109 H 05/05/20 15:16 151/101 H 05/05/20 15:15 112 H 24 96 05/05/20 15:08 105 H 25 H 130/91 97 05/05/20 15:07 106 H 8 L 05/05/20 14:46 135 H 21 100 05/05/20 14:45 136 H 21 141/106 H 99 05/05/20 14:31 130 H 19 97 05/05/20 14:30 130 H 19 133/98 98 05/05/20 14:16 138 H 19 97 05/05/20 14:15 100 H 19 128/89 98 05/05/20 14:02 144 H 19 05/05/20 13:45 134 H 20 97 05/05/20 13:30 136 H 19 05/05/20 13:21 134 H 18 125/91 96 05/05/20 13:20 135 H 21 05/05/20 13:08 36.4 C L 108 H 20 124/82 98 Supervising Physician Co-Signing Physician Notes Resident Physician Supervision Note: I interviewed and examined the patient. Discussed with and agree with findings and plan as documented in the note. Any exceptions or clarifications are listed here: None 74-year-old male recently instituted on FOLFOX and Avastin for metastatic colon cancer with mets to liver and lung who presents with persistent tachycardia and massive lower extremity swelling. Patient is a history of previous vertebral compression fractures BPH and had persistent tachycardia leukocytosis prior to intravenous catheter placement for chemotherapy. Patient did also see cardiology prior to this and had a normal echocardiogram with no good explanati on for sinus tachycardia. Initial evaluation in the emergency department did not really reveal other causes of this patient's tachycardia I reviewed the past medical history social history family history medications in the above listed note and have no additions or alterations The patient appeared well nourished and normally developed. Vital signs as documented. Head exam is normocephalic atraumatic no scleral icterus Neck is without JVD, thyromegaly, or carotid bruits. Attempts or carotid sinus massage not result in any reduction in the patient's heart rate Lungs are clear to auscultation, no focal loss of breath sounds Cardiac exam, tachycardic no murmurs, rubs or gallops. Abdominal exam reveals normal bowel sounds, soft non tender, no masses Extremities are massively swollen not weeping Neurologic exam is alert and oriented, no focal loss of strength or sensation Skin is without bruises or rashes Patient will be brought in beta-blockers will be continued initially the patient did respond to IV fluids this will be tried again however this patient may need a cardiology evaluation with escalation of beta-blockers and little of explanation of this patient's tachycardia. With regard to concern for leukocytosis and previous elevation of procalcitonin chest x-ray does show some compressive atelectasis associate with a pleural effusion patient has no physical symptoms of pneumonia at this time Documented By: Alok Hanks MD Resident Activity Tracking Resident Involvement: Resident Care Provided Care Provided: Adult [facility] Medicine
[2020-05-05] MEDS ORDERED: ALBUMIN 25% 50 ML IV ONE ×2 (18:46→21:00)
[2020-05-05] MEDS ORDERED: ALBUMIN HUMAN 25% 12.5 GM/50 ML VIAL IV ONE (19:36)
--- NOTE | 2020-05-05 19:36 | History & Physical Report ---
Date of Service May 05, 2020 Assessment & Plan Admission and Anticipated Discharge Date Admission Date: Please see H&P from Dr. Bess this is documents for billing purposes only History of Present Illness Primary Care Provider: AARON Aguilar Allergies Allergy/AdvReac Type Severity Reaction Status Date / Time ciprofloxacin Allergy Intermediate Rash Verified 05/05/20 14:48 Home Medications Home Medications Medication Instructions Recorded Confirmed Type dorzolamide 2 % eye drops 1 drp OPL TID ml 05/19/19 05/05/20 History latanoprost 0.005 % eye drops 1 drp OPL HS ml 05/19/19 05/05/20 History cholecalciferol (vitamin D3) 100 100 mcg PO QAM 04/11/20 05/05/20 History mcg (4,000 unit) capsule furosemide 40 mg PO QAM 04/26/20 05/05/20 History ondansetron HCl [Zofran] 4 mg PO DAILY PRN 04/26/20 05/05/20 History potassium chloride [Klor-Con 10] 10 meq PO QAM 04/26/20 05/05/20 History prochlorperazine maleate 10 mg PO Q6H PRN 04/26/20 05/05/20 History metoprolol tartrate 25 mg tablet 25 mg PO BID #60 tab 04/28/20 05/05/20 Rx Chemo Iv 0 mg IV UD 05/05/20 05/05/20 History Past Med/Surg History Medical History Anemia BPH (benign prostatic hyperplasia) per records/ denies Colon cancer Glaucoma Hyperlipidemia Metastases to the liver Surgical History History of hernia surgery x 2 right and left ingunial Hx of cataract surgery left Family History Denies family history of Ovarian cancer Prostate cancer Diabetes Breast cancer Colorectal cancer Hypertension Social History Smoking Status: Never smoker Tobacco Type: Cigarettes Second Hand Exposure: No; Do You Dip or Chew Tobacco: No; Tobacco Cessation Education Requested by Patient: No Hx Alcohol Use: No Hx Substance Use: No Preferred Language: [place] Communication Ability: Effective Yeast Maker Required: No Beliefs That Will Affect Care: None marital status: Current Living Situation: Spouse current occupational status: retired Other Information That Helps Us Care for You: No Feels Safe at Home: Yes Safety Concerns: Feels Safe At This Time caffeine: No Dental Care, Regularly: No Physical Activity Frequency: 1-2 Times per Week Seatbelt Use: always Sunscreen Use: No Results & Data Results & Data ([facility]) Vital Signs (Past 12 Hours) Vital Signs Temp Pulse Resp BP Pulse Ox 05/05/20 19:15 130 H 22 05/05/20 19:00 130 H 32 H 05/05/20 18:45 137 H 30 H 05/05/20 18:30 127 H 23 05/05/20 18:15 128 H 25 H 05/05/20 18:00 130 H 30 H 05/05/20 17:45 103 H 27 H 05/05/20 17:44 139 H 138/102 H 05/05/20 17:31 131 H 21 05/05/20 17:30 132 H 22 138/102 H 05/05/20 17:16 132 H 24 05/05/20 17:15 133 H 23 135/99 05/05/20 17:01 135 H 24 96 05/05/20 17:00 99 H 27 H 142/89 H 05/05/20 16:50 132 H 25 H 137/102 H 05/05/20 16:49 129 H 24 05/05/20 16:31 131 H 22 95 05/05/20 16:30 131 H 23 134/100 96 05/05/20 16:17 143 H 24 139/106 H 96 05/05/20 16:16 141 H 139/106 H 05/05/20 16:15 141 H 22 95 05/05/20 16:00 149 H 34 H 98 05/05/20 15:46 106 H 23 97 05/05/20 15:45 104 H 25 H 133/92 96 05/05/20 15:30 102 H 21 134/92 96 05/05/20 15:22 141 H 29 H 139/109 H 05/05/20 15:16 151/101 H 05/05/20 15:15 112 H 24 96 05/05/20 15:08 105 H 25 H 130/91 97 05/05/20 15:07 106 H 8 L 05/05/20 14:46 135 H 21 100 05/05/20 14:45 136 H 21 141/106 H 99 05/05/20 14:31 130 H 19 97 05/05/20 14:30 130 H 19 133/98 98 05/05/20 14:16 138 H 19 97 05/05/20 14:15 100 H 19 128/89 98 05/05/20 14:02 144 H 19 05/05/20 13:45 134 H 20 97 05/05/20 13:30 136 H 19 05/05/20 13:21 134 H 18 125/91 96 05/05/20 13:20 135 H 21 05/05/20 13:08 97.5 F L 108 H 20 124/82 98 Code Status & VTE Plan VTE Prophylaxis Plan VTE Prophylaxis will be ordered: Yes PG Care Time/CCT Total # of Minutes Spent Total Time Spent with Patient: Total time spent is greater than 50% in coordination of care (as documented) at patient's floor/unit and/or counseling patient: Coding Level of Care Code 08889 Initial Inpt Care Lvl 2
[2020-05-05] MEDS ORDERED: ONDANSETRON 4 MG OD TAB PO PRN (20:53)
[2020-05-05] MEDS ORDERED: HEPARIN SOD 5,000 UNIT/0.5 ML VIAL SQ SCH (21:00)
[2020-05-05] MEDS ORDERED: QUETIAPINE FUMARATE 25 MG TABLET PO ONE (21:00)
[2020-05-05] MEDS ORDERED: SODIUM CHLORIDE 0.9% 1000ML 250 ML IV ONE (21:00)
[2020-05-05] MEDS ORDERED: PROCHLORPERAZINE MALEATE 10 MG TAB PO PRN (21:00)
[2020-05-05] MEDS ORDERED: HEPARIN 100 UNIT/ML 5ML FLUSH IV PRN (22:25)
[2020-05-05] MEDS: METOPROLOL TARTRATE 25 MG TAB PO SCH (22:34)
--- NOTE | 2020-05-05 22:52 | Communication Note ---
Date of Service: May 05, 2020 Notified by Stat rad of positive DVT in LLE. Will start Heparin IV with Bolus. Resident Activity Tracking Resident Involvement: Resident Care Provided Care Provided: Adult Hospital Medicine
[2020-05-05] MEDS ORDERED: HEPARIN SODIUM/DEXTROSE 25,000 UNITS/500 ML BAG IV SCH (23:00)
[2020-05-05] MEDS ORDERED: HEPARIN IV BOLUS 6,000 UNITS in SYRINGE 0 ML IV ONE (23:30)
[2020-05-06 06:20] LABS: Hematocrit (blood only) 30.4 % (42-52); Hemoglobin 9.3 g/dL (14.0-18.0); Immature Granulocytes # (auto) 0.03 K/uL (0.00-0.02); Immature Granulocytes % (auto) 0.3 %; Lymphocytes # (auto) 0.97 K/uL (1.2-3.4); Lymphocytes % (auto) 9.6 %; Mean Corpuscular Hemoglobin 25.1 pg (25-34); Mean Corpuscular Hgb Conc 30.6 g/dL (32-36); Mean Corpuscular Volume 82.2 fL (80-100); Monocytes # (auto) 0.09 K/uL (0.11-0.59); Monocytes % (auto) 0.9 %; Neutrophils # (auto) 9.05 K/uL (1.4-6.5); Neutrophils % (auto) 89.2 %; Platelet Count 190 K/uL (130-400); RDW Coefficient of Variation 23.2 % (11.5-14.5); RDW Standard Deviation 70.1 fL (36.4-46.3); White Blood Count 10.14 K/uL (4.8-10.8)
[2020-05-06 06:36] LABS: Partial Thromboplastin Ratio 3.2
[2020-05-06 06:45] LABS: Anisocytosis Present; Hypochromasia Present
--- NOTE | 2020-05-06 06:50 | Ultrasound Report ---
BILATERAL LOWER EXTREMITY VENOUS DOPPLER CLINICAL HISTORY: Bilateral lower extremity edema. COMPARISON STUDY: No previous studies for comparison. TECHNIQUE: Sonography of the deep venous system of the bilateral lower extremities was performed. Co mpression and augmentation were evaluated. FINDINGS: There is no deep venous thrombus within the right lower extremity. Note is made of nonocclu sive deep venous thrombus within the proximal left superficial femoral vein. The bilateral calf vesse ls were patent. IMPRESSION: Deep venous thrombus within the proximal left superficial femoral vein. ACT 112: Negative or not required by law. Electronically signed by: Mack Joseph M.D. 05/06/2020 6:49 AM
[2020-05-06 07:15] LABS: Albumin Globulin Ratio 0.3 (0.9-2); Albumin Level 1.5 gm/dl (3.4-5.0); BUN Creatinine Ratio 44.1 (10-20); Bilirubin,Total 1.2 mg/dl (0.2-1); Calcium 7.9 mg/dl (8.5-10.1); Creatinine Clr Calc Pharmacy 119.1 ml/min; Est GFR (African American) 118.1; Est GFR (Non-African American) 101.9; Globulin 4.4 gm/dl (2.5-4.0); Potassium 3.3 mmol/L (3.5-5.1); Total Protein 5.9 gm/dl (6.4-8.2)
[2020-05-06] MEDS: METOPROLOL TARTRATE 25 MG TAB PO SCH (07:48)
[2020-05-06] MEDS ORDERED: POTASSIUM CHLORIDE 20 MEQ TABCR PO STA (08:07)
--- NOTE | 2020-05-06 08:34 | Electrocardiogram Report ---
Test Reason : Blood Pressure : / mmHG Vent. Rate : 140 BPM Atrial Rate : 125 BPM P-R Int : 000 ms QRS Dur : 080 ms QT Int : 334 ms P-R-T Axes : 000 022 007 degrees QTc Int : 509 ms Poor data quality, interpretation may be adversely affected Supraventricular tachycardia Otherwise normal ECG When compared with ECG of 05-MAY-2020 13:15, Premature atrial complexes no longer present (in retrospect, prior tracing more likely sinus tachycardia with PACs than afib) Confirmed by Genaro Bruno ([id number]) on 05/06/2020 8:33:57 AM Referred By: Madison Scott Confirmed By:Genaro Bruno
--- NOTE | 2020-05-06 08:34 | Electrocardiogram Report ---
Test Reason : Blood Pressure : / mmHG Vent. Rate : 140 BPM Atrial Rate : 045 BPM P-R Int : 000 ms QRS Dur : 078 ms QT Int : 364 ms P-R-T Axes : 000 025 000 degrees QTc Int : 555 ms Poor data quality, interpretation may be adversely affected Supraventricular tachycardia Otherwise normal ECG When compared with ECG of 05-MAY-2020 15:49, No significant change was found Confirmed by Genaro Bruno ([id number]) on 05/06/2020 8:34:06 AM Referred By: Madison Scott Confirmed By:Genaro Bruno
[2020-05-06] MEDS ORDERED: CHOLECALCIFEROL 1,000 UNITS 25 MCG TAB PO SCH (09:00)
[2020-05-06] MEDS ORDERED: POTASSIUM CHLORIDE 10 MEQ TABCR PO SCH (09:00)
--- NOTE | 2020-05-06 09:29 | Cardiology Consultation ---
Date of Consultation May 06, 2020 Assessment & Plan (1) PSVT (paroxysmal supraventricular tachycardia): He has a paroxysmal supraventricular tachycardia which I believe is an atrial tachycardia, it has the appearance of being reentrant although I cannot exclude an automatic focus. It is fast enough that I think we should suppress it. I am not sure why he has it, it could be a longstanding arrhythmia which is now exacerbated, possibly by catecholamine excess. I think it is reasonable to try to suppress it with beta-blockade however if that does not work I would probably use amiodarone. I am going to increase his metoprolol, it seems that emergency room intravenous metoprolol did suppress the arrhythmia to a certain extent. Other options include antiarrhythmic therapy or ablation, but hopefully that will not be necessary. (2) Peripheral edema: He has a very low albumin, that is probably sufficient to explain his edema. I do not believe there is a cardiac cause. History of Present Illness Reason for Consultation: Persistent tachycardia Attending Physician: Elizabeth Sprague MD History of Present Illness This is a 74-year-old male recently diagnosed with metastatic colon cancer who is undergoing chemotherapy and was seen in our office as a preoperative evaluation on April 28, 2020. He had been observed to be tachycardic but has no other cardiac history. Echocardiography done April 28, 2020 was unremarkable. Electrocardiography on April 28, 2020 showed a narrow complex tachycardia at 141 bpm, there were premature atrial beats and the rhythm appears to be some sort of atrial tachycardia, not flutter or a reentrant rhythm. He was on metoprolol tartrate 25 mg twice daily. Other electrocardiograms show a similar pattern, the first recent one that I have to review is March 09, 2020 which shows what appears to be sinus or an atrial tachycardia at 132 bpm. The P wave morphology looks fairly normal suggesting an origin near the sinus node. His prior electrocardiogram from January 2016 showed sinus rhythm at 78 bpm. He presented to the emergency room on May 05, 2020 when he was observed to be tachycardic when his chemotherapy was finished. This was evidently asymptomatic although he did complain of fatigue. He does have peripheral edema but also has hypoalbuminemia. In the emergency room a CT a of the chest was negative for pulmonary embolism. In the emergency room here his presenting electrocardiogram May 05, 2020 at 1315 showed an atrial tachycardia with premature atrial beats at a rate of 136 bpm. The P wave morphology is little hard to determine on this electrocardiogram. The next electrocardiogram done 2 hours later shows a similar arrhythmia without any premature beats at 140 bpm. A third electrocardiogram on May 05, 2020 at 1700 shows a similar arrhythmia at 140 bpm. His heart rate would transiently drop with intravenous metoprolol. On discussing symptoms with him he does appear to be asymptomatic with his arrhythmia although he is aware that his heart rate is fast. I believe just because he has been told that. He is weak but that may be part of his underlying condition not his arrhythmia. He does not have lightheadedness, dizziness, presyncope and is never had syncope. He notes that he has edema that fluctuates somewhat, currently it is better than it often is. Allergies Allergy/AdvReac Type Severity Reaction Status Date / Time ciprofloxacin Allergy Intermediate Rash Verified 05/05/20 14:48 Home Medications Home Medications Medication Instructions Recorded Confirmed Type dorzolamide 2 % eye drops 1 drp OPL TID ml 05/19/19 05/05/20 History latanoprost 0.005 % eye drops 1 drp OPL HS ml 05/19/19 05/05/20 History cholecalciferol (vitamin D3) 100 100 mcg PO QAM 04/11/20 05/05/20 History mcg (4,000 unit) capsule furosemide 40 mg PO QAM 04/26/20 05/05/20 History ondansetron HCl [Zofran] 4 mg PO DAILY PRN 04/26/20 05/05/20 History potassium chloride [Klor-Con 10] 10 meq PO QAM 04/26/20 05/05/20 History prochlorperazine maleate 10 mg PO Q6H PRN 04/26/20 05/05/20 History metoprolol tartrate 25 mg tablet 25 mg PO BID #60 tab 04/28/20 05/05/20 Rx Chemo Iv 0 mg IV UD 05/05/20 05/05/20 History Patient History Medical History Anemia BPH (benign prostatic hyperplasia) per records/ denies Colon cancer Glaucoma Hyperlipidemia Metastases to the liver Surgical History History of hernia surgery x 2 right and left ingunial Hx of cataract surgery left Family History Denies family history of Ovarian cancer Prostate cancer Diabetes Breast cancer Colorectal cancer Hypertension Social History Smoking Status: Never smoker Tobacco Type: Cigarettes Second Hand Exposure: No; Hx Alcohol Use: No Hx Substance Use: No Preferred Language: [place] Communication Ability: Effective Electrical Repairer Required: No Beliefs That Will Affect Care: None marital status: Current Living Situation: Spouse current occupational status: retired Feels Safe at Home: Yes caffeine: No Dental Care, Regularly: No Physical Activity Frequency: 1-2 Times per Week Seatbelt Use: always Sunscreen Use: No Review of Systems Review of Systems: All systems reviewed & are unremarkable except as noted in HPI & below Results & Data ([facility]) Vital Signs (Past 12 Hours) Vital Signs Temp Pulse Pulse Resp BP Pulse Ox 05/06/20 07:23 36.4 C L 137 H 18 127/89 94 05/06/20 05:53 132 H 05/06/20 03:12 36.6 C 129 H 20 133/95 95 05/05/20 23:23 36.4 C L 130 H 20 138/97 95 05/05/20 21:55 110 H Laboratory Results Cardiac Enzymes 05/05/20 05/06/20 Range/Units 13:45 06:05 AST 214 H 180 H (15-37) U/L Troponin I < 0.015 (0-0.045) ng/ml Coagulation 05/05/20 05/06/20 Range/Units 13:45 06:05 PT 13.5 H (9.0-12.0) Seconds APTT 33.0 H 88.0 H* (21.0-31.0) Seconds CBC 05/05/20 05/06/20 Range/Units 13:45 06:05 WBC 15.06 H 10.14 (4.8-10.8) K/uL RBC 4.05 L 3.70 L (4.7-6.1) M/uL Hgb 10.2 L 9.3 L (14.0-18.0) g/dL Hct 33.4 L 30.4 L (42-52) % Plt Count 249 190 (130-400) K/uL Neut # (Auto) 13.62 H 9.05 H (1.4-6.5) K/uL Lymph # (Auto) 1.00 L 0.97 L (1.2-3.4) K/uL [place] # (Auto) 0.37 0.09 L (0.11-0.59) K/uL Eos # (Auto) 0.00 0.00 (0-0.5) K/uL Baso # (Auto) 0.00 0.00 (0-0.2) K/uL Comprehensive Metabolic Panel 05/05/20 05/06/20 Range/Units 13:45 06:05 Sodium 139 141 (136-145) mmol/L Potassium 3.8 3.3 L (3.5-5.1) mmol/L Chloride 101 104 (98-107) mmol/L Carbon Dioxide 25 27 (21-32) mmol/L BUN 31 H 24 H (7-18) mg/dl Creatinine 0.90 0.55 L D (0.6-1.4) mg/dl Glucose 111 H 83 (70-99) mg/dl Calcium 8.7 7.9 L (8.5-10.1) mg/dl Direct Bilirubin 0.6 H (0-0.2) mg/dl AST 214 H 180 H (15-37) U/L ALT 52 41 (12-78) U/L Alkaline Phosphatase 251 H 199 H (45-117) U/L Total Protein 6.8 5.9 L (6.4-8.2) gm/dl Albumin 1.4 L 1.5 L (3.4-5.0) gm/dl Intake and Output 05/05/20 05/06/20 05/06/20 22:59 06:59 14:59 Intake Total 500 / 1600 600 / 1600 185.467 / 185.467 Output Total 375 / 375 Balance 500 / 1225 225 / 1225 185.467 / 185.467 Intake: IV 500 / 1300 300 / 1300 185.467 / 185.467 Albumin 25% 50 ml @ 50 mls/hr 50 / 50 IV ONE ONE Rx#:[id number] HEPARIN SODIUM/DEXTROSE 25,000 185.467 / 185.467 units In 500 ml @ 1,300 UNITS/ HR 26 mls/hr IV .[id number] VICKIE Rx #:[id number] Nss 1000ML 250 ml @ 999 mls/hr 250 / 250 IV .Q16M ONE Rx#:[id number] Nss 500 ml @ 999 mls/hr IV . 500 / 500 Q31M ONE Rx#:[id number] Oral 300 / 300 Output: Urine 375 / 375 Other: Weight 72.575 kg Diagnostic Findings Telemetry: Review of telemetry shows periods of a narrow complex tachycardia in 130 to 140 bpm range (the predominant rhythm) but periods of what appears to be sinus rhythm a little over 100 bpm. It is hard to determine P wave morphology on telemetry but this does not appear to be atrial flutter, I believe it is an atrial tachycardia which is paroxysmal but persistent and he is in it the majority of the time. He also has premature atrial beats and some wide-complex premature beats which may be PACs with aberrancy and these beats seem to start and terminate the arrhythmia from time to time. PG Care Time/CCT Total # of Minutes Spent Total Time Spent with Patient: Total time spent is greater than 50% in coordination of care (as documented) at patient's floor/unit and/or counseling patient: Coding Level of Care Code 87037 Initial Inpt Care Lvl 3 Diagnoses PSVT (paroxysmal supraventricular tachycardia) I47.1 Peripheral edema R60.9
[2020-05-06] MEDS ORDERED: METOPROLOL TARTRATE 50 MG TAB PO STA (09:37)
[2020-05-06] MEDS ORDERED: RIVAROXABAN 15 MG TAB PO SCH (10:30)
[2020-05-06] MEDS ORDERED: METOPROLOL TARTRATE 25 MG TAB PO SCH (21:00)
--- NOTE | 2020-05-06 22:40 | Discharge Summary ---
Date of Service May 06, 2020 Admission HPI Per Admitting Provider Murray Luna is a 74-year-old male with a past medical history of emphysema, vertebral compression fracture, BPH, chronic mild leukocytosis, and recently diagnosed metastatic colon cancer with mets to liver and concern for mets to lung who presents to the hospital after referral from his [place] physician for tachycardia appreciated by his home health nurse. Mr. Luna reports that he has been told that his heart rate is fast before, but he denies ever having any symptoms of this. He denies lightheadedness, dizziness, feeling of passing out or nearly passing out, chest pain, chest pressure, and palpitations. He denies shortness of breath at rest, endorses that he is easily fatigued and winded with exertion but denies shortness of breath otherwise. He denies cough. He denies any change in his shortness of breath with exertion. He denies fever, chills, night sweats. He has not had any recent sick contacts.He was recently diagnosed with colon cancer with mets to liver. He has had a port placed in his left subclavian, and recently finished his first round of chemotherapy with FOLFOX plus. [facility]. Medical history: Reviewed Surgical history: Reviewed Medications: Reviewed Allergies: Reviewed, pertinent positive for rash to ciprofloxacin Social history: Denies tobacco, alcohol, and recreational drug use. Lives at home with his and son. No recent sick contacts. CODE STATUS: DNR/DNI, discussed with patient and his who is present at bedside. Principal Diagnosis Atrial tachycardia, LLE DVT in SFA Discharge Exam Constitutional + thin and cooperative; no acute distress Eyes + anicteric sclerae ENMT external ear and nose normal, oropharynx normal Neck trachea midline, no thyromegaly Respiratory normal respiratory effort, lungs clear to auscultation Cardiovascular Rate/Rhythm: regular rhythm and + tachycardic Heart Sounds: no murmur Vessels: no JVD Extremities: + edema (1+ pitting edema right leg to knee,2+ left leg to knee) Chest (Breasts) Chest: normal inspection of chest Gastrointestinal (Abdomen) normal bowel sounds, soft, nontender, no hepatosplenomegaly Percussion/Palpation: + abdominal mass (palpable mass right mid abdomen) Musculoskeletal Extremities: no cyanosis and no clubbing Skin no rashes, warm and dry Neurologic moves all extremities and awake; no focal motor deficits Psychiatric Orientation: alert, oriented x 3 and cooperative Affect: + depressed affect Discharge Data Allergies Allergy/AdvReac Type Severity Reaction Status Date / Time ciprofloxacin Allergy Intermediate Rash Verified 05/05/20 14:48 Consultations 05/05/20 17:08 ED Decision to Admit Stat 05/05/20 20:46 Consult Cardiology Routine Ordered Studies 05/05/20 13:30 CT abd pelvis IV con only Stat CT angio chest PE protocol Stat 05/05/20 20:46 US venous doppler LE BI Stat CXR Hospital Course (1) Tachycardia: Murray Luna is a 74-year-old male with a past medical history of emphysema, vertebral compression fracture, BPH, chronic mild leukocytosis, and recently diagnosed metastatic colon cancer with mets to liver and concern for mets to lung who presents to the hospital after referral from his [place] physician for tachycardia appreciated by his home health nurse. ECG showed possible Afib but Cardiology consulted and confirmed paroxysmal atrial tachycardia both on ECG and on tele here with rates 130s-160s at times alternating with sinus tachycardia rates low 100s. -it has the appearance of being reentrant although Cardiology cannot exclude an automatic focus. COuld be secondary to increased catecholamines from stress of met colon CA vs long standing as he is asymptomatic. Chest CTA neg for PE although suboptimal for segmental arteries Patient had a cardiac evaluation prior to port placement, echo 7 days ago with preserved EF and was placed on metoprolol 25mg bid -Appreciate Cardiology consultation--> increased metoprolol to 75mg po bid and HR improved to 90-100, BP tolerated -f/u with Cardiology in 2 weeks and if rhythm not improved, may start AMiodarone (2) Acute DVT (deep venous thrombosis): Due to LE edema, bilat venous Dopplers obtained which showed acute DVT left proximal SFV -started on heparin gtt initially overnight and then converted to Xarelto 15mg po bid x 21 days and then 20mg daily with dinner discussed alternative anticoagulation medications and risk/benefot to being on AC-pt agrees to start Xarelto Dr. Cabral also recommended Xarelto -will need indefinite length treatment given presence of metastatic CA -bleeding precautions given and he has no h/o such (3) Colon cancer: Colon cancer with mets to liver, concern for lung metastasis, with pleural effusion seen CT-Chest:No pulmonary emboli identified although segmental and subsegmental pulmonary arteries suboptimally assessed due to respiratory motion. Small bilateral pleural effusions. Segmental right lower lobe opacity favors atelectasis. Mild increase in size and number small pulmonary nodules since prior chest CT. These are suspicious for metastases. - CT-A/P: Hepatomegaly with evidence of diffuse hepatic metastatic disease. This is overall similar in appearance to the 03/20/2020 examination. Again seen is a large mass in the transverse colon. This is also similar in appearance to previous. There is no evidence of colonic obstruction. Mildly enlarged pericolonic lymph nodes are again noted. These have modestly decreased in size from 03/09/2020. A left lower lobe pulmonary metastasis has increased in size from 03/09/2020. There is a small volume of abdominopelvic ascites. This is new from previous. Small pleural effusions are new from previous. Following with Dr. Cabral and [facility]. Undergoing FOLFOX + Avastin therapy. Elevated AST, INR 1.3, elevated alk phos with impaired albumin/synthetic function likely 2/2 extensive hepatic metastasis. - Follow clinically, no change in management at this time. -Next chemo scheduled for May 17 I advised his Oncologist that he was admitted with tachycardia and new DVT-see below (4) Peripheral edema: secondary to severe hypoalbuminemia due to poor nutrition and metastatic c ancer -advised continued Boost shakes at home do not need to take lasix daily, just take prn (5) Anemia: hgb 9,3, likely of chronic disease and perhaps some anti-neoplastic related anemia follow CBC as outpt with Oncology (6) Fracture of lumbar vertebra: chronic, causing pain f/u with PCP and/or Palliative (7) Pleural effusion: CT CHest with small pleural effusion, right lower consolidation/compression favoring atelectasis Not SOB, no hypoxia, afebrile, do not suspect infection or PNA Likely secondary to either pulm mets vs hypoalbuminemia No need for thoracentesis at this time f/u with Oncology and PCP (8) Hypokalemia: K+ low replaced with extra po KCl continue home dose KCl on dc Dispo-stable for dc to home Total Time Total Time Spent Total Time Spent (In Minutes): 45 min Total Time Includes: Examination of the Patient, Discharge Planning, Medication Reconciliation and Communication With Other Providers (Cardiology) Discharge Plan Discharge Items Patient Disposition: Home - Self-Care Reason For Visit: TACHYCARDIA Discharge Diagnosis: Atrial tachycardia, Left lower extremity DVT Condition on Discharge: Good Activity: Resume your previous activity Non-emergency contact: Primary Care Provider, Vascular Tech and Oncologist Call non-emergency contact if: you have any medication questions and your symptoms worsen Follow-up/Referrals: Madison Scott CRNP [Primary Care Provider] - 05/12/20 1:00 pm (You have a follow up appt with Adeola Sonia May 12 at 1pm. This appt will be in the [facility] office. Please arrive 15 minutes prior to your appt. Also, remember to take your face mask. If this appt does not fit your schedule please call [phone], to reschedule. ) James Clark MD [Physician] - 05/10/20 11:00 am (You have an appt made for SaturdayMay 10 @ [address] Clark. This appt is in the [place] office located at [address] [place] [address]. Please arrive 15 minutes prior to appt. Also, remember your face mask. If this appt does not fit your schedule please call [phone] to reschedule) Roberto Cabral V., [Physician] - (Follow up as already scheduled for chemotherapy in 2 weeks.) Diet: Regular Addtl Attending Provider Instructions: You were admitted for a rapid heartbeat called atrial tachycardia. Your metoprolol dose was increased to help lower your heart rate. Please follow up with the Vascular Tech, Dr. Clark, in his office within 2 weeks. You were also found to have a blood clot in the vein in your left leg. This will require you to be on a blood thinner called Xarelto to keep the blood clot from getting bigger and traveling to your lung where it can be fatal. You should take the Xarelto 15mg twice daily with food x 3 weeks, and then decrease the dose to 20mg once daily with dinner. You will stay on this indefinitely as cancer causes your blood to be thick and be at high risk for getting future blood clots. Medication Instructions: Your condition is typically treated with an anticoagulant. Anticoagulants will thin your blood to help prevent new clots. * You should take her medication exactly as directed. * Never skip a dose. * Never take a double dose. If you miss a dose, take it as soon as you remember. Call your Primary Care doctor if you experience any of the following: * Swelling or Pain in your leg * Sudden, continuous pain deep in a muscle * Pain that worsens when you are active or when you stand still for a long time * Chest Pain * Sudden Shortness of Breath * Rapid or pounding heart beat * Fainting * Dizziness * Cough with blood or bloody sputum * Sweating more than normal * Bruises * Heavy or uncontrolled bleeding * Blood in your urine, stool or vomit * Black or tarry stools Caring for Your Self at Home: * Avoid sitting, standing or lying down for long periods without moving your legs and feet * When traveling by car, stop to get out and move around at least once every 3 hours * On long airplane, train or bus rides, get up and move around when possible * If you can't get up, wiggle your toes and tighten your calves to keep your blood moving Follow Up: It is important for you to keep your follow up appointments with your medical provider. Pending Studies at Discharge: No Stand-Alone Forms: [facility] Medications and DC Order Prescriptions: New Xarelto 15 mg Tablet 15 mg PO BID Qty: 41 RF: 0 Xarelto 20 mg tablet 20 mg PO DAILY Qty: 30 RF: 0 Continued dorzolamide 2 % drops 1 drp OPL TID RF: 0 latanoprost [Xalatan] 0.005 % drops 1 drp OPL HS RF: 0 cholecalciferol (vitamin D3) 100 mcg (4,000 unit) capsule 100 mcg PO QAM RF: 0 Chemo Iv 0 mg IV UD RF: 0 ondansetron HCl [Zofran] 4 mg Tablet 4 mg PO DAILY PRN (Reason: Nausea) RF: 0 prochlorperazine maleate 10 mg Tablet 10 mg PO Q6H PRN (Reason: Nausea) RF: 0 potassium chloride [Klor-Con 10] 10 mEq tablet extended release 10 meq PO QAM RF: 0 Changed furosemide 20 mg tablet 20 mg PO QAM PRN (Reason: increased leg swelling) Qty: 0 RF: 0 metoprolol tartrate 25 mg tablet 75 mg PO BID Qty: 180 RF: 0 Discharge Orders: Discharge Order (Routine); Ordered 05/06/20 Ordered By: Elizabeth Sprague Admission Data Admit Date/Time: 05/05/20 18:39 Attending Provider: Elizabeth Sprague Admit Provider: Puneet Bess Primary Care Provider: Madison Scott Other Providers: Alok Hanks ; Azar Nazario ; [facility] Other Interventions: Discharge Summary Assessment (RN) Last Done: 05/06/20 13:24 Coding Level of Care Code 04168 OBS Care - Discharge Diagnoses Tachycardia R00.0 Acute DVT (deep venous thrombosis) I82.409 Colon cancer C18.9 Peripheral edema R60.9 Anemia D64.9 Fracture of lumbar vertebra S32.009A Pleural effusion J90 Hypokalemia E87.6
== END 2020-05-06 14:17 | disposition home or self-care (01) ==
LOC: 2N 13:06 → ED 13:06 → SUATTDRO 18:39 → 2N 19:59

== ENCOUNTER 2020-06-20 19:02 | Inpatient (IN) ==
--- NOTE | 2020-06-20 20:19 | Emergency Department Note ---
Impression & Plan Pneumonia, Metastatic disease, Elevated lactic acid level, Hypomagnesemia, Acute dyspnea ED Provider Note NAME: NAOMY VILLATORO AGE: 74 SEX: M ARRIVES VIA: Ambulance INFORMANT: Patient, ED PROVIDER(S): Sanjeev Motley MD CHIEF COMPLAINT: Shortness of breath PLAN: Disposition: Admit MEDICAL DECISION MAKING: The patient is a pleasant 74-year-old gentleman with a complicated past medical history of metastatic colon cancer with history of SVT, chronic peripheral edema in setting of hypoalbuminemia who presents emergency department with worsening shortness of breath and congestion over the past 48 hours in the setting of progressive symptoms over past 2 weeks. Denies fever, nausea, vomiting, diarrhea, urinary sx. On arrival the patient is ill-appearing but no acute distress, afebrile with heart rate in the 120s and O2 saturation 94% but with labored breathing and vital signs otherwise stable. Work of breathing improved with nasal cannula 2 L. WBC 22K increased from prior. H/H 11.3/38.1 similar to prior range of values. Platelets within normal limits. INR 1.8 in the setting of being on Xarelto. Lactic acid is elevated at 7.6 however chemistry without metabolic acidosis with no anion gap elevation and bicarb of 27. Magnesium 1.7 with repletion provided. Total bilirubin 1.2 and direct bilirubin 0.8 and AST and alk phos 204 and 378, respectively similar to prior values. Troponin negative/undetectable. BNP 2500, decreased from prior admission and April. Procalcitonin is elevated at 1.3. CTA of the chest and CT of abdomen pelvis were performed and demonstrates the patient's extensive metastatic disease. There does appear to be worsening of right sided pleural effusion with comment of atelectasis of the right middle and lower lobes in addition to the lingula and left lower lobe. The patient's leukocytosis with significantly elevated lactate in the setting of his presentation the patient was ordered for empiric broad-spectrum antibiotics with Zosyn and vancomycin. Given the dense right-sided findings on chest CT unclear if represents underlying infectious process. Findings and concern for critical illness reviewed with patient. Agrees with admission for further management and likely goals of care discussion. Case was discussed with Dr. Carter, [facility], who will evaluate the patient for admission. Triage Nursing notes reviewed and agree them. Prior medical records reviewed Vital Signs: reviewed and remarkable for no significant abnormalities Differential diagnosis: Sepsis, UTI, pneumonia, metabolic, electrolyte abnormalities, cardiac sources, intracerebral event, toxicologic, neurologic, as well as other pathologies. ER treatment provided: See below. Diagnostics interpreted by me: ECG: Sinus tachycardia with PACs, 103 bpm, no overt ST elevation or depression, QTC 482, QRS 82. Cardiac Monitoring: An order for continuous cardiac monitoring was placed and demonstrated sinus tachycardia, 103 bpm, PACs. Laboratory studies: See below Imaging studies: [facility] Preliminary Findings Only See Final Report For Complete Findings CTA CHEST: Comparison: CTA chest 05/05/20. No evidence of acute pulmonary embolism. No thoracic aortic aneurysm. Normal heart size. No pericardial effusion. Moderate right and small left pleural effusions. Atelectasis right middle lobe, right lower lobe, lingula, and left lower lobe. No pneumothorax. 8 mm pulmonary nodule left lower lobe (series 4, image 67), stable from prior exam. 4.5 mm pulmonary nodule superior segment left lower lobe (series 4, image 111), not definitely seen on prior exam. Possible additional pulmonary micronodules in the left lung. Pulmonary metastatic disease not excluded. No acute osseous findings. Chronic appearing T12 compression fracture. Left chest wall port catheter with tip in the right atrium. Radiologist: Heide Marin M.D. Study ready at 21:38 and initial results transmitted at 21:51 -- Preliminary Findings Only See Final Report For Complete Findings CT ABDOMEN & PELVIS With Contrast: Segmental irregular wall thickening in the mid transverse colon (series 5, image 51), concerning for colon carcinoma. Small adjacent lymph nodes, possibly karli metastases. Innumerable hepatic metastases, confluent in the right hepatic lobe. Right hepatic lobe cyst. Main portal vein appears patent. Gallbladder, spleen, pancreas, adrenal glands are unremarkable. Symmetric renal enhancement. No hydronephrosis. Normal caliber aorta. Moderate ascites. No free air. Appendix not visualized. No bowel obstruction. Urinary bladder and prostate are unremarkable. Anasarca. Multiple lumbar compression fractures, chronic in appearance. No acute osseous findings. Radiologist: Heide Marin M.D. Study ready at 21:38 and initial results transmitted at 21:52 Consultation(s): Case was discussed with Dr. Carter, [facility], who will evaluate the patient for admission. HPI: The patient is a pleasant 74-year-old gentleman with a complicated past medical history of metastatic colon cancer with history of SVT, chronic peripheral edema in setting of hypoalbuminemia who presents emergency department with worsening shortness of breath and congestion over the past 48 hours in the setting of progressive symptoms over past 2 weeks. Denies fever, nausea, vomiting, diarrhea, urinary sx. ROS: See above HPI for pertinent positives & negatives. A total of 10 systems reviewed and were otherwise negative. PAST MEDICAL HISTORY:See Below PAST SURGICAL HISTORY:See Below FAMILY HISTORY:See Below SOCIAL HISTORY:See Below HOME MEDICATIONS:See Below ALLERGIES:See Below VITALS:See Below PHYSICAL EXAMINATION: GENERAL: Awake, alert, cachectic and ill-appearing, in mild respiratory distress HENT: Normocephalic, atraumatic. Oropharynx with dry mucous membranes and otherwise unremarkable. EYES: Normal conjunctiva. Sclera non-icteric. NECK: Supple. No nuchal rigidity. FROM. No JVD. RESPIRATORY: Diminished at bases with scant rhonchi. CARDIAC: Tachycardic rate, normal rhythm. Extremities warm and well perfused. Pulses equal. ABDOMEN: Soft, with mild-distension. No tenderness to palpation. No rebound or guarding. No masses. RECTAL: Deferred. MUSCULOSKELETAL: Chest examination reveals no tenderness. The back is symmetrical on inspection without obvious abnormality. There is no CVA tenderness to palpation. No joint edema. LOWER EXTREMITIES: Calves are equal size bilaterally and non-tender. 3+ BLE pitting edema. No discoloration. NEURO: Normal sensorium. No sensory or motor deficits noted. SKIN: No rash or jaundice noted. ED COURSE: Critical Care: I have personally spent greater than 75 minutes of critical care time in the direct management of this patient. This includes bedside care, interpretation of diagnostic studies, and testing, discussion with consultants, patient, and family members, and other required patient management activities. This 75 minutes is in excess of all separately billable procedures. Sanjeev Motley MD Past Med/Surg History Medical History Acute DVT (deep venous thrombosis) Anemia BPH (benign prostatic hyperplasia) per records/ denies Colon cancer DVT (deep venous thrombosis) Glaucoma Hyperlipidemia Metastases to the liver Pleural effusion Surgical History History of hernia surgery x 2 right and left ingunial Hx of cataract surgery left Family History Denies family history of Ovarian cancer Prostate cancer Diabetes Breast cancer Colorectal cancer Hypertension Social History Smoking Status: Never smoker Tobacco Type: Cigarettes Second Hand Exposure: No; Hx Alcohol Use: No Hx Substance Use: No Preferred Language: Icelandic Communication Ability: Effective Pharmacy Clinical Coordinator Required: No Beliefs That Will Affect Care: None marital status: Current Living Situation: Spouse current occupational status: retired Feels Safe at Home: Yes Safety Concerns: Feels Safe At This Time caffeine: No Dental Care, Regularly: No Physical Activity Frequency: 1-2 Times per Week Seatbelt Use: always Sunscreen Use: No Assistive Devices: Glasses and Walker Allergies Allergies Allergy/AdvReac Type Severity Reaction Status Date / Time ciprofloxacin Allergy Intermediate Rash Verified 06/20/20 21:20 Home Meds Home Medications Medication Instructions Recorded Confirmed dorzolamide 2 % eye drops 1 drp OPL BID ml 05/19/19 06/20/20 latanoprost 0.005 % eye drops 1 drp OPL HS ml 05/19/19 06/20/20 cholecalciferol (vitamin D3) 100 100 mcg PO QAM 04/11/20 06/20/20 mcg (4,000 unit) capsule ondansetron HCl [Zofran] 4 mg PO DAILY PRN 04/26/20 06/20/20 potassium chloride [Klor-Con 10] 10 meq PO QAM 04/26/20 06/20/20 prochlorperazine maleate 10 mg PO Q6H PRN 04/26/20 06/20/20 rivaroxaban [Xarelto] 20 mg PO QDD 06/20/20 06/20/20 Previous Rx's Medication Instructions Recorded furosemide 20 mg PO QAM PRN #0 tab 05/06/20 metoprolol succinate 200 mg 200 mg PO DAILY #30 tab 05/10/20 tablet,extended release 24 hr Results & Data (ED) Vital Signs Vital Signs - 24 hr 06/20/20 19:13 06/20/20 19:18 06/20/20 20:45 Temperature 36.3 C L Temperature Source Oral Pulse Rate 120 H Pulse Rate [Bilateral Apical] 120 H Respiratory Rate 24 22 Respiratory Effort / Characteristics Non-Labored Non-Labored Respiratory Depth Normal Blood Pressure 101/87 Blood Pressure [Left Arm] Blood Pressure Mean 91 Blood Pressure Mean [Left Arm] Pulse Oximetry 95 96 96 Oxygen Delivery Method Room Air Nasal Cannula Room Air Oxygen Flow Rate 2 Sepsis Recent Fever Within 48 Hours No Sepsis New/Unexplained Change in Mental Status N/A Sepsis Action Taken by Nursing No Action Required 06/20/20 20:47 06/20/20 21:13 06/20/20 21:14 Temperature Temperature Source Pulse Rate Pulse Rate [Bilateral Apical] 99 H Respiratory Rate 22 22 Respiratory Effort / Characteristics Respiratory Depth Blood Pressure Blood Pressure [Left Arm] 125/87 Blood Pressure Mean Blood Pressure Mean [Left Arm] 99 Pulse Oximetry 96 96 96 Oxygen Delivery Method Room Air Nasal Cannula Nasal Cannula Oxygen Flow Rate 2 2 Sepsis Recent Fever Within 48 Hours Sepsis New/Unexplained Change in Mental Status Sepsis Action Taken by Nursing 06/20/20 22:02 06/20/20 22:43 Temperature Temperature Source Pulse Rate Pulse Rate [Bilateral Apical] 91 H 90 Respiratory Rate 20 20 Respiratory Effort / Characteristics Respiratory Depth Blood Pressure Blood Pressure [Left Arm] 110/76 125/86 Blood Pressure Mean Blood Pressure Mean [Left Arm] 87 99 Pulse Oximetry 100 100 Oxygen Delivery Method Room Air Oxygen Flow Rate Sepsis Recent Fever Within 48 Hours Sepsis New/Unexplained Change in Mental Status Sepsis Action Taken by Nursing Laboratory Data Attestation: I reviewed the patient's lab results. Result diagrams: 06/20/20 20:15 06/20/20 20:15 Lab Results 06/20/20 06/20/20 06/20/20 Range/Units 20:15 20:15 20:15 WBC 22.04 H (4.8-10.8) K/uL RBC 4.07 L (4.7-6.1) M/uL Hgb 11.3 L (14.0-18.0) g/dL Hct 38.1 L (42-52) % MCV 93.6 (80-100) fL MCH 27.8 (25-34) pg MCHC 29.7 L (32-36) g/dL RDW Std Deviation 81.7 H (36.4-46.3) fL RDW Coeff of Kamille 23.6 H (11.5-14.5) % Plt Count 171 (130-400) K/uL MPV 10.4 (7.4-10.4) fL Immature Gran % (Auto) 0.7 % Neut % (Auto) 87.3 % Lymph % (Auto) 5.9 % [place] % (Auto) 6.0 % Eos % (Auto) 0.1 % Baso % (Auto) 0.0 % Neut # (Auto) 19.23 H (1.4-6.5) K/uL Lymph # (Auto) 1.30 (1.2-3.4) K/uL [place] # (Auto) 1.33 H (0.11-0.59) K/uL Eos # (Auto) 0.02 (0-0.5) K/uL Baso # (Auto) 0.01 (0-0.2) K/uL Immature Gran # (Auto) 0.15 H (0.00-0.02) K/uL Absolute Nucleated RBC 0.03 H (0-0) K/uL Nucleated RBC % (auto) 0.1 % Hypochromasia Present Anisocytosis Present PT 18.8 H (9.0-12.0) Seconds INR 1.8 H (0.9-1.1) APTT 39.9 H (21.0-31.0) Seconds PTT Ratio 1.4 VBG pH (7.36-7.41) VBG pCO2 (38-50) mmHg VBG pO2 mmHg VBG HCO3 mmol/L VBG O2 Saturation % VBG Base Excess mEq/L Barometric Pressure mm/Hg Sodium 141 (136-145) mmol/L Potassium 3.8 (3.5-5.1) mmol/L Chloride 103 (98-107) mmol/L Carbon Dioxide 27 (21-32) mmol/L Anion Gap 12.0 H (3-11) BUN 20 H (7-18) mg/dl Creatinine 0.91 (0.6-1.4) mg/dl Est Cr Clr Drug Dosing 74.7 ml/min Est GFR ( Amer) 95.2 Est GFR (Non-Af Amer) 82.2 BUN/Creatinine Ratio 22.3 H (10-20) Glucose 82 (70-99) mg/dl Lactate (0.4-2.0) mmol/L Calcium 8.0 L (8.5-10.1) mg/dl Phosphorus 4.1 (2.5-4.9) mg/dl Magnesium 1.7 L (1.8-2.4) mg/dl Total Bilirubin 1.2 H (0.2-1) mg/dl Direct Bilirubin 0.8 H (0-0.2) mg/dl AST 204 H (15-37) U/L ALT 51 (12-78) U/L Alkaline Phosphatase 378 H (45-117) U/L Troponin I < 0.015 (0-0.045) ng/ml NT-Pro-B Natriuret Pep 2513 H (0-900) pg/ml Total Protein 6.5 (6.4-8.2) gm/dl Albumin 1.2 L (3.4-5.0) gm/dl Globulin 5.3 H (2.5-4.0) gm/dl Albumin/Globulin Ratio 0.2 L (0.9-2) Procalcitonin (0-0.5) ng/ml TSH 6.900 H (0.300-4.500) uIu/ml Free T4 1.23 (0.8-1.6) ng/dl 06/20/20 06/20/20 06/20/20 Range/Units 20:15 20:15 21:38 WBC (4.8-10.8) K/uL RBC (4.7-6.1) M/uL Hgb (14.0-18.0) g/dL Hct (42-52) % MCV (80-100) fL MCH (25-34) pg MCHC (32-36) g/dL RDW Std Deviation (36.4-46.3) fL RDW Coeff of Kamille (11.5-14.5) % Plt Count (130-400) K/uL MPV (7.4-10.4) fL Immature Gran % (Auto) % Neut % (Auto) % Lymph % (Auto) % [place] % (Auto) % Eos % (Auto) % Baso % (Auto) % Neut # (Auto) (1.4-6.5) K/uL Lymph # (Auto) (1.2-3.4) K/uL [place] # (Auto) (0.11-0.59) K/uL Eos # (Auto) (0-0.5) K/uL Baso # (Auto) (0-0.2) K/uL Immature Gran # (Auto) (0.00-0.02) K/uL Absolute Nucleated RBC (0-0) K/uL Nucleated RBC % (auto) % Hypochromasia Anisocytosis PT (9.0-12.0) Seconds INR (0.9-1.1) APTT (21.0-31.0) Seconds PTT Ratio VBG pH 7.36 (7.36-7.41) VBG pCO2 42 (38-50) mmHg VBG pO2 48 mmHg VBG HCO3 24 mmol/L VBG O2 Saturation 78.6 % VBG Base Excess -1.7 mEq/L Barometric Pressure 732.0 mm/Hg Sodium (136-145) mmol/L Potassium (3.5-5.1) mmol/L Chloride (98-107) mmol/L Carbon Dioxide (21-32) mmol/L Anion Gap (3-11) BUN (7-18) mg/dl Creatinine (0.6-1.4) mg/dl Est Cr Clr Drug Dosing ml/min Est GFR ( Amer) Est GFR (Non-Af Amer) BUN/Creatinine Ratio (10-20) Glucose (70-99) mg/dl Lactate 7.6 H* (0.4-2.0) mmol/L Calcium (8.5-10.1) mg/dl Phosphorus (2.5-4.9) mg/dl Magnesium (1.8-2.4) mg/dl Total Bilirubin (0.2-1) mg/dl Direct Bilirubin (0-0.2) mg/dl AST (15-37) U/L ALT (12-78) U/L Alkaline Phosphatase (45-117) U/L Troponin I (0-0.045) ng/ml NT-Pro-B Natriuret Pep (0-900) pg/ml Total Protein (6.4-8.2) gm/dl Albumin (3.4-5.0) gm/dl Globulin (2.5-4.0) gm/dl Albumin/Globulin Ratio (0.9-2) Procalcitonin 1.31 H (0-0.5) ng/ml TSH (0.300-4.500) uIu/ml Free T4 (0.8-1.6) ng/dl 06/20/20 Range/Units 22:25 WBC (4.8-10.8) K/uL RBC (4.7-6.1) M/uL Hgb (14.0-18.0) g/dL Hct (42-52) % MCV (80-100) fL MCH (25-34) pg MCHC (32-36) g/dL RDW Std Deviation (36.4-46.3) fL RDW Coeff of Kamille (11.5-14.5) % Plt Count (130-400) K/uL MPV (7.4-10.4) fL Immature Gran % (Auto) % Neut % (Auto) % Lymph % (Auto) % [place] % (Auto) % Eos % (Auto) % Baso % (Auto) % Neut # (Auto) (1.4-6.5) K/uL Lymph # (Auto) (1.2-3.4) K/uL [place] # (Auto) (0.11-0.59) K/uL Eos # (Auto) (0-0.5) K/uL Baso # (Auto) (0-0.2) K/uL Immature Gran # (Auto) (0.00-0.02) K/uL Absolute Nucleated RBC (0-0) K/uL Nucleated RBC % (auto) % Hypochromasia Anisocytosis PT (9.0-12.0) Seconds INR (0.9-1.1) APTT (21.0-31.0) Seconds PTT Ratio VBG pH (7.36-7.41) VBG pCO2 (38-50) mmHg VBG pO2 mmHg VBG HCO3 mmol/L VBG O2 Saturation % VBG Base Excess mEq/L Barometric Pressure mm/Hg Sodium (136-145) mmol/L Potassium (3.5-5.1) mmol/L Chloride (98-107) mmol/L Carbon Dioxide (21-32) mmol/L Anion Gap (3-11) BUN (7-18) mg/dl Creatinine (0.6-1.4) mg/dl Est Cr Clr Drug Dosing ml/min Est GFR ( Amer) Est GFR (Non-Af Amer) BUN/Creatinine Ratio (10-20) Glucose (70-99) mg/dl Lactate 6.3 H* (0.4-2.0) mmol/L Calcium (8.5-10.1) mg/dl Phosphorus (2.5-4.9) mg/dl Magnesium (1.8-2.4) mg/dl Total Bilirubin (0.2-1) mg/dl Direct Bilirubin (0-0.2) mg/dl AST (15-37) U/L ALT (12-78) U/L Alkaline Phosphatase (45-117) U/L Troponin I (0-0.045) ng/ml NT-Pro-B Natriuret Pep (0-900) pg/ml Total Protein (6.4-8.2) gm/dl Albumin (3.4-5.0) gm/dl Globulin (2.5-4.0) gm/dl Albumin/Globulin Ratio (0.9-2) Procalcitonin (0-0.5) ng/ml TSH (0.300-4.500) uIu/ml Free T4 (0.8-1.6) ng/dl Administered Medications Dorzolamide HCl (Dorzolamide Hcl 2% Oph Soln 10 Ml Btl) 1 drops OPL BID VICKIE Stop: 07/20/20 23:45 Last Admin: 06/21/20 01:41 Dose: 1 drops Documented by: [id number] Sodium Chloride (Nss 1000ml) 1,000 mls @ 125 mls/hr IV .Q8H VICKIE Stop: 07/20/20 22:14 Last Admin: 06/20/20 22:46 Dose: 125 mls/hr Documented by: [id number] Piperacillin Sod/Tazobactam (Sod 3.375 gm/ Dextrose) 115 mls @ 28.75 mls/hr IV Q8H VICKIE; Protocol Stop: 06/28/20 01:59 Last Admin: 06/21/20 01:42 Dose: 28.8 mls/hr Documented by: [id number] Discontinued Medications Magnesium Sulfate/Dextrose (Magnesium Sulfate / D5w) 1 gm in 100 mls @ 100 mls/hr IV NOW STA Stop: 06/20/20 22:31 Last Infusion: 06/20/20 22:46 Dose: 0 mls/hr Documented by: [id number] Admin: 06/20/20 21:52 Dose: 100 mls/hr Documented by: [id number] Sodium Chloride (Nss) 500 mls @ 999 mls/hr IV .Q31M ONE Stop: 06/20/20 22:01 Last Infusion: 06/20/20 22:40 Dose: 0 mls/hr Documented by: [id number] Admin: 06/20/20 21:48 Dose: 999 mls/hr Documented by: [id number] Piperacillin Sod/Tazobactam Sod (Zosyn) 4.5 gm in 120 mls @ 240 mls/hr IV NOW ONE Stop: 06/20/20 22:00 Last Infusion: 06/20/20 22:40 Dose: 0 mls/hr Documented by: [id number] Admin: 06/20/20 21:52 Dose: 240 mls/hr Documented by: [id number] Vancomycin HCl 1,750 mg/ (Sodium Chloride) 535 mls @ 200 mls/hr IV NOW ONE Stop: 06/21/20 00:11 Last Admin: 06/20/20 22:40 Dose: 200 mls/hr Documented by: [id number] Ioversol (Optiray 320 125ml) 120 ml IV ONCE ONE Stop: 06/20/20 21:35 Last Admin: 06/20/20 21:34 Dose: 120 ml Documented by: [id number] Discharge Plan Visit Data Chief Complaint: Shortness of Breath/Dyspnea Stated Complaint: SHORTNESS OF BREATH ED Provider: Sanjeev Motley Discharge Problem: Pneumonia, Metastatic disease, Elevated lactic acid level, Hypomagnesemia, Acute dyspnea Patient Disposition: Admitted As Inpatient Discharge Instructions Interventions: ED Discharge Assessment Last Done: 06/20/20 23:26 Discharge Problem: Pneumonia Qualifiers: Pneumonia type: due to unspecified organism Laterality: unspecified laterality Lung location: lower lobe of lung Qualified Code(s): J18.9 - Pneumonia, unspecified organism Metastatic disease Qualifiers: Area of secondary neoplastic involvement: unspecified site Qualified Code(s): C79.9 - Secondary malignant neoplasm of unspecified site
--- NOTE | 2020-06-20 20:26 | XRay Report ---
SINGLE VIEW CHEST CLINICAL HISTORY: Sepsis. FINDINGS: An AP, portable, upright chest radiograph is compared to chest x-ray and chest CT dated 04/10. The examination is degraded by portable technique and patient rotation. A left subclavian jazmin tral venous infusion port is unchanged in position. The cardiomediastinal silhouette is unremarkable noting atherosclerotic calcification of the thoracic aorta. There are layering pleural effusions with bibasilar consolidation. No pneumothorax is seen. The skeletal structures are osteopenic. The bony t horax is grossly intact. IMPRESSION: Layering pleural effusions with bibasilar consolidation. This likely represents atelectas is and clinical correlation will be required. ACT 112: Negative or not required by law. Electronically signed by: Kehinde Monzon M.D. 06/20/2020 8:25 PM
[2020-06-20 20:48] LABS: Basophils # (auto) 0.01 K/uL (0-0.2); Eosinophils # (auto) 0.02 K/uL (0-0.5); Eosinophils % (auto) 0.1 %; Hematocrit (blood only) 38.1 % (42-52); Hemoglobin 11.3 g/dL (14.0-18.0); Immature Granulocytes # (auto) 0.15 K/uL (0.00-0.02); Immature Granulocytes % (auto) 0.7 %; Lymphocytes % (auto) 5.9 %; Mean Corpuscular Hemoglobin 27.8 pg (25-34); Mean Corpuscular Hgb Conc 29.7 g/dL (32-36); Mean Corpuscular Volume 93.6 fL (80-100); Mean Platelet Volume 10.4 fL (7.4-10.4); Monocytes # (auto) 1.33 K/uL (0.11-0.59); Neutrophils # (auto) 19.23 K/uL (1.4-6.5); Neutrophils % (auto) 87.3 %; Nucleated RBC # (auto) 0.03 K/uL (0-0); Nucleated RBC % (auto) 0.1 %; Platelet Count 171 K/uL (130-400); RDW Coefficient of Variation 23.6 % (11.5-14.5); RDW Standard Deviation 81.7 fL (36.4-46.3); Red Blood Count 4.07 M/uL (4.7-6.1); White Blood Count 22.04 K/uL (4.8-10.8)
[2020-06-20 20:57] LABS: INR 1.8 (0.9-1.1); Partial Thromboplastin Ratio 1.4; Partial Thromboplastin Time 39.9 Seconds (21.0-31.0); Prothrombin Time 18.8 Seconds (9.0-12.0)
[2020-06-20 21:06] LABS: Alanine Aminotransferase 51 U/L (12-78); Albumin Level 1.2 gm/dl (3.4-5.0); Aspartate Aminotransferase 204 U/L (15-37); BUN Creatinine Ratio 22.3 (10-20); Bilirubin Direct 0.8 mg/dl (0-0.2); Blood Urea Nitrogen 20 mg/dl (7-18); Carbon Dioxide 27 mmol/L (21-32); Chloride 103 mmol/L (98-107); Creatinine Clr Calc Pharmacy 74.7 ml/min; Est GFR (African American) 95.2; Est GFR (Non-African American) 82.2; Glucose 82 mg/dl (70-99); Magnesium 1.7 mg/dl (1.8-2.4); Potassium 3.8 mmol/L (3.5-5.1); Sodium 141 mmol/L (136-145)
[2020-06-20 21:19] LABS: Albumin Globulin Ratio 0.2 (0.9-2); Alkaline Phosphatase 378 U/L (45-117); Bilirubin,Total 1.2 mg/dl (0.2-1); Globulin 5.3 gm/dl (2.5-4.0); NT Pro B Type Natriuretic Pept 2513 pg/ml (0-900); Phosphorus 4.1 mg/dl (2.5-4.9); Total Protein 6.5 gm/dl (6.4-8.2); Troponin I < 0.015 ng/ml (0-0.045)
[2020-06-20 21:31] LABS: T4 Free Thyroxine 1.23 ng/dl (0.8-1.6)
[2020-06-20] MEDS ORDERED: PIPERACILL/TAZOBAC CONSULT ACTIVE PRN (21:31)
[2020-06-20] MEDS ORDERED: PIPERACILLIN/TAZOBACTAM 4.5 GM/120 ML BAG IV ONE (21:31)
[2020-06-20] MEDS ORDERED: VANCOMYCIN CONSULT ACTIVE PRN (21:31)
[2020-06-20] MEDS ORDERED: SODIUM CHLORIDE 0.9% 500 ML IV ONE (21:31)
[2020-06-20] MEDS ORDERED: VANCOMYCIN HCL 1,750 MG in SODIUM CHLORIDE 0.9% 500 ML IV ONE (21:31)
[2020-06-20] MEDS ORDERED: MAGNESIUM SULFATE / D5W 1 GM/100 ML BAG IV STA (21:32)
[2020-06-20] MEDS ORDERED: OPTIRAY 320 125ml IV ONE (21:34)
[2020-06-20 21:52] LABS: Anisocytosis Present; Hypochromasia Present
[2020-06-20 22:07] LABS: Base Excess VBG -1.7 mEq/L; Oxygen Saturation VBG 78.6 %; pH VBG 7.36 (7.36-7.41)
[2020-06-20] MEDS: SODIUM CHLORIDE 0.9% 1000ML 1,000 ML IV SCH (22:46)
--- NOTE | 2020-06-20 22:56 | History & Physical Report ---
Date of Service June 20, 2020 Assessment & Plan (1) Pneumonia: Continue vancomycin IV and Zosyn IV begun in the ED. Present on Admission?: Yes (2) Metastatic disease: Metastatic colon cancer/anasarca/hypoalbuminemia/severe fatigue- Place patient on albumin with Lasix IV to try to improve comfort. Consult palliative care. Patient looks very debilitated. Needs end-of-life consultation Present on Admission?: Yes (3) Anasarca: See above Present on Admission?: Yes (4) Hypoalbuminemia: See above Present on Admission?: Yes (5) DVT (deep venous thrombosis): Continue Xarelto Present on Admission?: Yes (6) Hypertension: Reduce metoprolol succinate 20 mg p.o. twice daily with hold parameters Present on Admission?: Yes (7) Glaucoma: Continue usual eyedrops Present on Admission?: Yes (8) Fatigue: See above Present on Admission?: Yes History of Present Illness Chief Complaint: The patient presents to the emergency department via ambulance due to worsening shortness of breath over the past 2 days. Primary Care Provider: AARON Aguilar The patient is a 74-year-old male with a past medical history including DVT, pleural effusion, PSVT, hypoalbuminemia, metastatic disease, peripheral edema, liver metastases, colon cancer, urethral stricture, BPH with LUTS, dyslipidemia, tachycardia, history of left inguinal hernia repair, compression fractures of lumbar and thoracic vertebrae and glaucoma. The patient presents to the emergency department with progressive metastatic colon cancer, worsening chronic peripheral edema and hypoalbuminemia. He also complains of some congested cough. Work-up in the emergency department included a CT of abdomen and pelvis with contrast which shows changes in mid transverse colon concerning for colon cancer with karli metastases. Innumerable hepatic metastases, confluent in the right hepatic lobe. Moderate ascites without free air. Anasarca. Multiple lumbar compression fractures that are chronic in appearance. CTA of chest shows moderate right and small left pleural effusions. 8 mm pulmonary nodule left lower lobe that is stable. Possible additional pulmonary micronodules in the left lung, with pulmonary metastatic disease not excluded. Chronic appearing T12 compression fracture. Allergies Allergy/AdvReac Type Severity Reaction Status Date / Time ciprofloxacin Allergy Intermediate Rash Verified 06/20/20 21:20 Home Medications Home Medications Medication Instructions Recorded Confirmed Type dorzolamide 2 % eye drops 1 drp OPL BID ml 05/19/19 06/20/20 History latanoprost 0.005 % eye drops 1 drp OPL HS ml 05/19/19 06/20/20 History cholecalciferol (vitamin D3) 100 100 mcg PO QAM 04/11/20 06/20/20 History mcg (4,000 unit) capsule ondansetron HCl [Zofran] 4 mg PO DAILY PRN 04/26/20 06/20/20 History potassium chloride [Klor-Con 10] 10 meq PO QAM 04/26/20 06/20/20 History prochlorperazine maleate 10 mg PO Q6H PRN 04/26/20 06/20/20 History furosemide 20 mg PO QAM PRN #0 tab 05/06/20 06/20/20 Rx metoprolol succinate 200 mg 200 mg PO DAILY #30 tab 05/10/20 06/20/20 Rx tablet,extended release 24 hr rivaroxaban [Xarelto] 20 mg PO QDD 06/20/20 06/20/20 History Past Med/Surg History Medical History (Updated 06/21/20 @ 02:59 by Michael Carter MD) Acute DVT (deep venous thrombosis) Anemia BPH (benign prostatic hyperplasia) per records/ denies Colon cancer DVT (deep venous thrombosis) Glaucoma Hyperlipidemia Metastases to the liver Pleural effusion Surgical History History of hernia surgery x 2 right and left ingunial Hx of cataract surgery left Family History Denies family history of Ovarian cancer Prostate cancer Diabetes Breast cancer Colorectal cancer Hypertension Social History Smoking Status: Never smoker Tobacco Type: Cigarettes Second Hand Exposure: No; Hx Alcohol Use: No Hx Substance Use: No Preferred Language: Bruneian Communication Ability: Effective Satellite Television Installer Required: No Beliefs That Will Affect Care: None marital status: Current Living Situation: Spouse current occupational status: retired Feels Safe at Home: Yes Safety Concerns: Feels Safe At This Time caffeine: No Dental Care, Regularly: No Physical Activity Frequency: 1-2 Times per Week Seatbelt Use: always Sunscreen Use: No Assistive Devices: Glasses and Walker Review of Systems Review of Systems: The patient denies palpitations, sore throat, fevers, chills, sweats, vomiting, blood in urine or stool, dysuria, urinary frequency or urgency, lightheadedness, dizziness, headache, memory loss, loss of consciousness, rash, abnormal bruising or bleeding, imbalance, focal weakness, numbness or tingling in arms or legs, or night sweats. The review of systems is otherwise negative other than for that already noted above, and at least 10 systems have been reviewed. Physical Exam Physical Exam: The patient is awake, lethargic, emaciated and debilitated appearing, normocephalic and atraumatic, lying in bed and in no acute distress. HEENT--PERRL, EOMI, mucous membranes and oropharynx dry. Neck--supple. No JVD. No bruits. Thyroid normal, trachea midline, no adenopathy. Heart--normal S1 and S2. No murmurs, rubs or gallops. Lungs--coarse breath sounds bilaterally. No respiratory distress, no accessory muscle use. Abdomen--normal bowel sounds and soft. Nontender. Mildly distended and tympanitic. Extremities--no cyanosis or clubbing. 3+ bilateral pretibial pitting edema. Dermatologic--normal skin turgor, normal color, no abnormal lymph nodes, no rash. Neurologic--cranial nerves II through XII grossly intact. Rheumatologic--normal range of motion. Psychiatric--normal affect. Results & Data Results & Data ([facility]) Vital Signs (Past 12 Hours) Vital Signs Temp Pulse Pulse Resp BP BP Pulse Ox 06/20/20 22:43 90 20 125/86 100 06/20/20 22:02 91 H 20 110/76 100 06/20/20 21:14 99 H 22 125/87 96 06/20/20 21:13 22 96 06/20/20 20:47 96 06/20/20 20:45 120 H 22 96 06/20/20 19:18 96 06/20/20 19:13 97.3 F L 120 H 24 101/87 95 Laboratory Results Laboratory Results WBC 22.04 K/uL (4.8-10.8) H 06/20/20 20:15 RBC 4.07 M/uL (4.7-6.1) L 06/20/20 20:15 Hgb 11.3 g/dL (14.0-18.0) L 06/20/20 20:15 Hct 38.1 % (42-52) L 06/20/20 20:15 MCV 93.6 fL (80-100) 06/20/20 20:15 MCH 27.8 pg (25-34) 06/20/20 20:15 MCHC 29.7 g/dL (32-36) L 06/20/20 20:15 RDW Std Deviation 81.7 fL (36.4-46.3) H 06/20/20 20:15 RDW Coeff of Kamille 23.6 % (11.5-14.5) H 06/20/20 20:15 Plt Count 171 K/uL (130-400) 06/20/20 20:15 MPV 10.4 fL (7.4-10.4) 06/20/20 20:15 Immature Gran % (Auto) 0.7 % 06/20/20 20:15 Neut % (Auto) 87.3 % 06/20/20 20:15 Lymph % (Auto) 5.9 % 06/20/20 20:15 Morehouse % (Auto) 6.0 % 06/20/20 20:15 Eos % (Auto) 0.1 % 06/20/20 20:15 Baso % (Auto) 0.0 % 06/20/20 20:15 Neut # (Auto) 19.23 K/uL (1.4-6.5) H 06/20/20 20:15 Lymph # (Auto) 1.30 K/uL (1.2-3.4) 06/20/20 20:15 Morehouse # (Auto) 1.33 K/uL (0.11-0.59) H 06/20/20 20:15 Eos # (Auto) 0.02 K/uL (0-0.5) 06/20/20 20:15 Baso # (Auto) 0.01 K/uL (0-0.2) 06/20/20 20:15 Immature Gran # (Auto) 0.15 K/uL (0.00-0.02) H 06/20/20 20:15 Absolute Nucleated RBC 0.03 K/uL (0-0) H 06/20/20 20:15 Nucleated RBC % (auto) 0.1 % 06/20/20 20:15 Hypochromasia Present 06/20/20 20:15 Anisocytosis Present 06/20/20 20:15 PT 18.8 Seconds (9.0-12.0) H 06/20/20 20:15 INR 1.8 (0.9-1.1) H 06/20/20 20:15 APTT 39.9 Seconds (21.0-31.0) H 06/20/20 20:15 PTT Ratio 1.4 06/20/20 20:15 VBG pH 7.36 (7.36-7.41) 06/20/20 21:38 VBG pCO2 42 mmHg (38-50) 06/20/20 21:38 VBG pO2 48 mmHg 06/20/20 21:38 VBG HCO3 24 mmol/L 06/20/20 21:38 VBG O2 Saturation 78.6 % 06/20/20 21:38 VBG Base Excess -1.7 mEq/L 06/20/20 21:38 Barometric Pressure 732.0 mm/Hg 06/20/20 21:38 Sodium 141 mmol/L (136-145) 06/20/20 20:15 Potassium 3.8 mmol/L (3.5-5.1) 06/20/20 20:15 Chloride 103 mmol/L (98-107) 06/20/20 20:15 Carbon Dioxide 27 mmol/L (21-32) 06/20/20 20:15 Anion Gap 12.0 (3-11) H 06/20/20 20:15 BUN 20 mg/dl (7-18) H 06/20/20 20:15 Creatinine 0.91 mg/dl (0.6-1.4) 06/20/20 20:15 Est Cr Clr Drug Dosing 74.7 ml/min 06/20/20 20:15 Est GFR ( Amer) 95.2 06/20/20 20:15 Est GFR (Non-Af Amer) 82.2 06/20/20 20:15 BUN/Creatinine Ratio 22.3 (10-20) H 06/20/20 20:15 Glucose 82 mg/dl (70-99) 06/20/20 20:15 Lactate 6.3 mmol/L (0.4-2.0) H* 06/20/20 22:25 Calcium 8.0 mg/dl (8.5-10.1) L 06/20/20 20:15 Phosphorus 4.1 mg/dl (2.5-4.9) 06/20/20 20:15 Magnesium 1.7 mg/dl (1.8-2.4) L 06/20/20 20:15 Total Bilirubin 1.2 mg/dl (0.2-1) H 06/20/20 20:15 Direct Bilirubin 0.8 mg/dl (0-0.2) H 06/20/20 20:15 AST 204 U/L (15-37) H 06/20/20 20:15 ALT 51 U/L (12-78) 06/20/20 20:15 Alkaline Phosphatase 378 U/L (45-117) H 06/20/20 20:15 Troponin I < 0.015 ng/ml (0-0.045) 06/20/20 20:15 NT-Pro-B Natriuret Pep 2513 pg/ml (0-900) H 06/20/20 20:15 Total Protein 6.5 gm/dl (6.4-8.2) 06/20/20 20:15 Albumin 1.2 gm/dl (3.4-5.0) L 06/20/20 20:15 Globulin 5.3 gm/dl (2.5-4.0) H 06/20/20 20:15 Albumin/Globulin Ratio 0.2 (0.9-2) L 06/20/20 20:15 Procalcitonin 1.31 ng/ml (0-0.5) H 06/20/20 20:15 TSH 6.900 uIu/ml (0.300-4.500) H 06/20/20 20:15 Free T4 1.23 ng/dl (0.8-1.6) 06/20/20 20:15 Diagnostic Findings [facility] Patient: NAOMY VILLATORO (Male) : 43 Status: ER Date: 06/20/20 21:32 Room #: History: shortness of breath, weakness, swelling to extremities metastatic cancer Slices: [phone] Priors: Tech: Karina Mcdonald @ [phone] Exams: CTA CHEST Contrast: IV Amt: 120ml of optiray 320 Accession Numbers: [id number] Preliminary Findings Only See Final Report For Complete Findings CTA CHEST: Comparison: CTA chest 05/05/20. No evidence of acute pulmonary embolism. No thoracic aortic aneurysm. Normal heart size. No pericardial effusion. Moderate right and small left pleural effusions. Atelectasis right middle lobe, right lower lobe, lingula, and left lower lobe. No pneumothorax. 8 mm pulmonary nodule left lower lobe (series 4, image 67), stable from prior exam. 4.5 mm pulmonary nodule superior segment left lower lobe (series 4, image 111), not definitely seen on prior exam. Possible additional pulmonary micronodules in the left lung. Pulmonary metastatic disease not excluded. No acute osseous findings. Chronic appearing T12 compression fracture. Left chest wall port catheter with tip in the right atrium. Radiologist: Heide Marin M.D. Study ready at 21:38 and initial results transmitted at 21:51 *This report constitutes a preliminary interpretation only. Non-acute findings felt to be unrelated to the clinical presentation may not be discussed in this report. The study will be interpreted and a final report will be generated by the local Radiologist the following shift. To reach the hospital radiology department call [phone]. If a discrepancy is found between the preliminary and final interpretations of this study, please notify us via our Client Portal at [email or web address].You can also fax this report with a description of the discrepancy, or include the final report, to our daytime fax number [phone].If faxing, please indicate the severity of discrepancy using one of the following categories: [ ] 1 - Agree/Informational [ ] 2 - Unlikely to Affect Management [ ] 3 - Possible Eventual Change of Management [ ] 4 - Probable Immediate Change of Management For all other patient related information, please fax us at [phone]. [id number] [facility] Patient: NAOMY VILLATORO (Male) : 43 Status: ER Date: 06/20/20 21:33 Room #: History: shortness of breath, weakness, metastatic cancer extremity swelling, appendix present Slices: [phone] Priors: Tech: Karina Mcdonald @ [phone] Exams: CT ABDOMEN & PELVIS With Contrast Contrast: IV Amt: 120ml of optiray 320 Accession Numbers: [id number] Preliminary Findings Only See Final Report For Complete Findings CT ABDOMEN & PELVIS With Contrast: Segmental irregular wall thickening in the mid transverse colon (series 5, image 51), concerning for colon carcinoma. Small adjacent lymph nodes, possibly karli metastases. Innumerable hepatic metastases, confluent in the right hepatic lobe. Right hepatic lobe cyst. Main portal vein appears patent. Gallbladder, spleen, pancreas, adrenal glands are unremarkable. Symmetric renal enhancement. No hydronephrosis. Normal caliber aorta. Moderate ascites. No free air. Appendix not visualized. No bowel obstruction. Urinary bladder and prostate are unremarkable. Anasarca. Multiple lumbar compression fractures, chronic in appearance. No acute osseous findings. Radiologist: Heide Marin M.D. Study ready at 21:38 and initial results transmitted at 21:52 *This report constitutes a preliminary interpretation only. Non-acute findings felt to be unrelated to the clinical presentation may not be discussed in this report. The study will be interpreted and a final report will be generated by the local Radiologist the following shift. To reach the hospital radiology department call [phone]. If a discrepancy is found between the preliminary and final interpretations of this study, please notify us via our Client Portal at [email or web address] can also fax this report with a description of the discrepancy, or include the final report, to our daytime fax number [phone].If faxing, please indicate the severity of discrepancy using one of the following categories: [ ] 1 - Agree/Informational [ ] 2 - Unlikely to Affect Management [ ] 3 - Possible Eventual Change of Management [ ] 4 - Probable Immediate Change of Management For all other patient related information, please fax us at [phone]. [id number] Code Status & VTE Plan Code Status DNR/DNI VTE Prophylaxis Plan VTE Prophylaxis will be ordered: Yes PG Care Time/CCT Total # of Minutes Spent Total Time Spent with Patient: Total time spent is greater than 50% in coordination of care (as documented) at patient's floor/unit and/or counseling patient: Coding Level of Care Code 10135 Initial Inpt Care Lvl 3 Diagnoses Pneumonia J18.9 Metastatic disease C78.7 Area of secondary neoplastic involvement: digestive structure Digestive structure secondary neoplasm location: metastatic to liver Anasarca R60.1 Hypoalbuminemia E88.09 DVT (deep venous thrombosis) I82.409 Hypertension I10 Glaucoma H40.9 Fatigue R53.83 (1) Metastatic disease Area of secondary neoplastic involvement: digestive structure Digestive structure secondary neoplasm location: metastatic to liver Qualified Code(s): C78.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
[2020-06-20] MEDS ORDERED: ONDANSETRON INJ 2 MG/ML 2 ML VIAL IV PRN (23:46)
[2020-06-20] MEDS ORDERED: MAGNESIUM HYDROXIDE SUSP 30 ML UDC PO PRN (23:46)
[2020-06-20] MEDS ORDERED: ACETAMINOPHEN 325 MG TAB PO PRN (23:46)
[2020-06-20] MEDS ORDERED: ALUMINUM/MAGNESIUM SUSP 30 ML UDC PO PRN (23:46)
[2020-06-21] MEDS: DORZOLAMIDE HCL 2% OPH SOLN 10 ML BTL OPL SCH ×3 (01:41→22:12)
[2020-06-21] MEDS: PIPERACILLIN/TAZOBACTAM 3.375 GM in DEXTROSE 5% 100 ML IV SCH ×3 (01:42→18:09)
[2020-06-21 04:45] LABS: Appearance Urine Turbid (Clear); Bacteria Urine Automated Negative (Negative); Bilirubin Urine Negative (Negative); Blood Urine Negative (Negative); Color Urine Yellow; Epithelial Cell Urine Auto >30 /lpf (0-5); Glucose Urine UA Negative (Negative); Ketones Urine Negative (Negative); Leukocyte Esterase Urine Negative (Negative); Nitrite Urine Negative (Negative); Protein Urine Negative (Negative); Specific Gravity Urine > 1.045 (1.000-1.030); Urobilinogen Urine Negative (Negative); pH Urine 5.5 (4.5-7.5)
[2020-06-21] MEDS: ALBUMIN 25% 50 ML with FUROSEMIDE 40 MG IV SCH ×2 (04:51→10:21)
[2020-06-21 05:01] LABS: RBC Urine Automated 0-4 /hpf (0-4); Uric Acid Crystals Urine Present (None Prsent)
[2020-06-21] MEDS: SODIUM CHLORIDE 0.9% 1000ML 1,000 ML IV SCH ×2 (06:31→14:14)
[2020-06-21 07:10] LABS: Basophils # (auto) 0.01 K/uL (0-0.2); Basophils % (auto) 0.1 %; Eosinophils # (auto) 0.02 K/uL (0-0.5); Eosinophils % (auto) 0.1 %; Hemoglobin 10.5 g/dL (14.0-18.0); Immature Granulocytes % (auto) 0.6 %; Lymphocytes # (auto) 1.29 K/uL (1.2-3.4); Lymphocytes % (auto) 7.5 %; Mean Corpuscular Hemoglobin 27.9 pg (25-34); Mean Corpuscular Volume 92.8 fL (80-100); Mean Platelet Volume 10.8 fL (7.4-10.4); Monocytes % (auto) 5.8 %; Neutrophils # (auto) 14.81 K/uL (1.4-6.5); Neutrophils % (auto) 85.9 %; Platelet Count 150 K/uL (130-400); RDW Coefficient of Variation 23.4 % (11.5-14.5); RDW Standard Deviation 80.9 fL (36.4-46.3); Red Blood Count 3.77 M/uL (4.7-6.1); White Blood Count 17.23 K/uL (4.8-10.8)
--- NOTE | 2020-06-21 07:16 | CT Scan Report ---
CT abd pelvis IV con only CLINICAL HISTORY: Weakness, shortness of breath, swelling, history of metastatic disease. COMPARISON STUDY: 05/05/2020 TECHNIQUE: The patient was scanned in a dynamic helical fashion during intravenous administration of 120 cc of Optiray 320 A dose lowering technique was utilized adhering to the principles of ALARA. CT DOSE: 971.06 mGy.cm FINDINGS: Lower chest: There are bilateral pleural effusions. There are basilar airspace opacities likely repre senting compressive atelectasis although an infectious process could appear similar. There is a persi stent 8 mm left lower lobe pulmonary nodule Liver: The liver is diffusely replaced by metastatic lesions. The findings appear slightly progressiv e. Gallbladder: Unremarkable. Spleen: Normal in size and attenuation. Pancreas: Unremarkable. Adrenal glands: Unremarkable. Kidneys: There is symmetric renal cortical enhancement. The kidneys are normal in size without hydron ephrosis. Bowel: There are no transition zones to indicate bowel obstruction. There is a large mass involving t he transverse colon measuring 9 cm in length. There is no evidence of acute diverticulitis. There is no evidence of acute appendicitis Peritoneum: There is increasing ascites. There is no free intraperitoneal air. Vasculature: The abdominal aorta is normal in course and caliber. Adenopathy: There are small lymph nodes adjacent to the transverse colonic mass, likely representing regional karli metastasis Pelvic viscera: The bladder, and pelvic viscera are unremarkable. Skeletal structures: No destructive osseous lesions are seen. There are multiple chronic vertebral kaemron dy compression fractures. IMPRESSION: 1. Bilateral pleural effusions with associated basilar opacity statistically atelectatic 2. Increasing ascites 3. Slight progression in the diffuse hepatic metastatic disease 4. 9 cm mass involving the transverse colon 5. No evidence of bowel obstruction. No evidence of free air 6. Persistent 8 mm left lower lobe pulmonary nodule ACT 112: Negative or not required by law. Electronically signed by: Blaise Chandler M.D. 06/21/2020 7:15 AM
[2020-06-21 07:19] LABS: INR 1.6 (0.9-1.1); Partial Thromboplastin Ratio 1.4; Partial Thromboplastin Time 39.6 Seconds (21.0-31.0); Prothrombin Time 16.3 Seconds (9.0-12.0)
[2020-06-21 07:39] LABS: Anisocytosis Present; Hypochromasia Present
[2020-06-21 07:42] LABS: Albumin Globulin Ratio 0.3 (0.9-2); Albumin Level 1.4 gm/dl (3.4-5.0); BUN Creatinine Ratio 24.8 (10-20); Bilirubin,Total 1.3 mg/dl (0.2-1); Calcium 8.1 mg/dl (8.5-10.1); Creatinine Clr Calc Pharmacy 95.7 ml/min; Est GFR (African American) 106.4; Est GFR (Non-African American) 91.8; Globulin 4.7 gm/dl (2.5-4.0); Magnesium 1.8 mg/dl (1.8-2.4); Phosphorus 3.7 mg/dl (2.5-4.9); Potassium 3.2 mmol/L (3.5-5.1); Total Protein 6.1 gm/dl (6.4-8.2)
--- NOTE | 2020-06-21 07:56 | CT Scan Report ---
CHEST CTA for PULMONARY ARTERIES CT DOSE: HISTORY: Weakness. Shortness of breath. TECHNIQUE: Multiaxial CT images of the chest were performed following the intravenous administration of contrast to evaluate the pulmonary arteries. Maximal intensity projection images were also obtaine d. A dose lowering technique was utilized adhering to the principles of ALARA. COMPARISON STUDY: Chest CTA 05/05/2020. FINDINGS: Normal caliber thoracic aorta with no evidence for dissection. A left subclavian Port-A-Cat h terminates in the right atrium. The heart remains enlarged. Moderate right and small left pleural e ffusions have increased in size. No filling defects within the pulmonary arteries to suggest pulmonar y embolus. Please refer to same day abdomen and pelvis CT for further evaluation abdominal structures . Normal caliber esophagus. No mediastinal hilar lymphadenopathy. There are low lung volumes. No susp icious lytic are blastic osseous lesions. No pneumothorax. The central airways are patent. Consolidat ion within the lung bases, right greater than left. This favors compressive atelectasis from the pleu ral effusions. A superimposed pneumonia cannot be excluded. A few scattered pulmonary nodules with th e largest in the left lower lobe on image 68 measuring 7 mm. There is also a 6 mm nodule within the r ight lower lobe on image 116. These are similar to the prior study hepatic metastatic disease is bett er appreciated on the same day abdomen and pelvis CT. IMPRESSION: 1. No evidence for pulmonary embolus. 2. Moderate right and small left pleural effusions which have increased in size. 3. Bibasilar consolidation favors atelectasis from the pleural effusions. A superimposed pneumonia ca nnot be excluded. 4. Redemonstration of the metastatic disease. ACT 112: Negative or not required by law. Electronically signed by: Sarthak Grimaldo M.D. 06/21/2020 7:55 AM
[2020-06-21] MEDS ORDERED: VANCOMYCIN HCL 1,000 MG in SODIUM CHLORIDE 0.9% 250 ML IV SCH (08:00)
[2020-06-21] MEDS: METOPROLOL SUCC 50MG EXT REL TAB PO SCH ×2 (08:05→22:12)
[2020-06-21] MEDS: CHOLECALCIFEROL 1,000 UNITS 25 MCG TAB PO SCH (08:06)
--- NOTE | 2020-06-21 13:53 | Electrocardiogram Report ---
Test Reason : Blood Pressure : / mmHG Vent. Rate : 103 BPM Atrial Rate : 103 BPM P-R Int : 152 ms QRS Dur : 082 ms QT Int : 368 ms P-R-T Axes : 047 005 -14 degrees QTc Int : 482 ms Sinus tachycardia with Premature atrial complexes Nonspecific T wave abnormality Abnormal ECG When compared with ECG of 05-MAY-2020 17:00, Premature atrial complexes are now Present Confirmed by Azar Nazario ([id number]) on 06/21/2020 1:53:14 PM Referred By: REFERRED SELF Confirmed By:Azar Nazario
--- NOTE | 2020-06-21 14:30 | Pharmacy Report ---
Pharmacy Abx Initial Consult - Date of Service June 21, 2020 - Pharmacy Dosing Scope Date of Consult: 06/20/20 Consultation requested by: Dr. Carter Pharmacy is consulted to initiate vancomycin and Zosyn IV dosing therapy, order appropriate labs and adjust drug dose/frequency. - Subjective The patient is a 74 year old M admitted on 06/20/20 22:55. - Objective Height: 5 ft 11 in Weight: 84.8 kg Vital Signs (Past 12hrs): Vital Signs Temp Pulse Resp BP Pulse Ox 06/21/20 06:32 36.4 C L 89 22 132/87 100 06/21/20 06:00 89 20 114/74 98 06/21/20 04:54 36.5 C 92 H 16 121/83 94 Lab Results (24hrs): Laboratory Tests (24 Hours) 06/21/20 06/21/20 06/20/20 06:59 06:59 20:15 WBC 17.23 H Neut # (Auto) 14.81 H Creatinine 0.71 Est Cr Clr Drug Dosing 95.7 Procalcitonin 1.31 H 06/20/20 06/20/20 20:15 20:15 WBC 22.04 H Neut # (Auto) 19.23 H Creatinine 0.91 Est Cr Clr Drug Dosing 74.7 Procalcitonin Micro Results: 06/21/20 04:35 Urine Culture - Pending Urine,Clean Catch 06/20/20 20:15 Aerobic Blood Culture - Pending Blood Anaerobic Blood Culture - Pending - Assessment & Plan Assessment 74 year old M with metastatic colon cancer, ordered empiric vancomycin and Zosyn for treatment of pneumonia. Based on chest x-ray and CTA - pneumonia cannot be excluded. Patient is afebrile, but did present with leukocytosis, which is mildly improved overnight (22 -> 17 k). Blood and urine cultures ordered and pending. MRSA nasal swab ordered and pending. Vancomycin to be discontinued if nasal swab is negative. Plan Vancomycin IV * Estimated PK Parameters: Vd 0.7 L/kg, Tomás 0.084 hr-1, t1/2 8 hr * Loading dose: 1750 mg (21 mg/kg) * Maintenance dose: 1000 mg IV (12 mg/kg) every 10 hours * Goal trough level for pneumonia : 15 to 20 mcg/mL * If vancomycin is continued, trough level to be obtained prior to 5th dose Piperacillin/tazobactam * 4.5 g bolus administered over 30 minutes, then 3.375 g IV extended infusion every 8 hours for CrCl greater than 20 mL/min Pharmacy will continue to follow and will adjust dose/frequency as necessary. Thank you.
--- NOTE | 2020-06-21 14:37 | Hospitalist Progress Note ---
Date of Service June 21, 2020 Assessment & Plan (1) Pneumonia: Continue vancomycin IV and Zosyn IV begun in the ED. CTA chest showed no PE, pleural effusions, bibasilar consolidation atelectasis vs pneumonia Lactic of 6 last evening - will recheck BC pending, urine culture pending (2) Metastatic disease: Metastatic colon cancer/anasarca/hypoalbuminemia/severe fatigue- Last treatment early May - per patient he was deemed too weak to continue treatments Mets to liver - moderate ascites on CT, INR is 1.6 Stop lasix and albumin and IVF - may want to consider tap for ascites if patient is uncomfortable Consulted palliative care - patient and not ready for hospice at this time, want to continue full treatments (3) Anasarca: See above (4) Hypoalbuminemia: Albumin 1.4. Patient with anasarca and pleural effusions likely exacerbated by low protein. BNP is 2513 Will add boost drinks (5) DVT (deep venous thrombosis): Continue Xarelto (6) Hypertension: Reduce metoprolol succinate 20 mg p.o. twice daily with hold parameters (7) Glaucoma: Continue usual eyedrops (8) Fatigue: See above (9) Hypokalemia: Replaced Admission and Anticipated Discharge Date Admission Date: June 20, 2020 Subjective Mr. Luna feels very fatigued and weak but otherwise does not have specific complaints ROS Constitutional: no chills, aches, sweats or fever Respiratory: no sob,cough, sputum, or wheezing Cardiac: no chest pain, palpitations, edema, orthopnea or lightheadedness GI: no abdominal pain, nausea, vomiting, diarrhea or constipation : no dysuria or hesitancy Extremities: no joint pain Skin: no rash All other systems reviewed and negative Physical Exam Physical Exam: General: no distress Eyes: normal inspection, PERLL Respiratory: chest non tender, clear to auscultation, normal breath sounds, no respiratory distress, no accessory muscle use Cardiac: regular rate and rhythm, no rub or gallop, no murmur, no edema, no jvd GI/: tympanic bowel sounds, no abd pain or tenderness, firm, distended Extremities: normal range of motion, normal strength, non tender Neuro/Psych: alert and oriented x 3, normal mood, flat affect Skin: normal color, dry Results & Data Results & Data ([facility]) Vital Signs (Past 12 Hours) Vital Signs Temp Pulse Resp BP Pulse Ox 06/21/20 06:32 36.4 C L 89 22 132/87 100 06/21/20 06:00 89 20 114/74 98 06/21/20 04:54 36.5 C 92 H 16 121/83 94 PG Care Time/CCT Total # of Minutes Spent Total Time Spent with Patient: Total time spent is greater than 50% in coordination of care (as documented) at patient's floor/unit and/or counseling patient: Coding Level of Care Code 64895 Subseq Hosp Care Lvl 3 Diagnoses Pneumonia J18.9 Metastatic disease C79.9 Area of secondary neoplastic involvement: unspecified site Anasarca R60.1 Hypoalbuminemia E88.09 DVT (deep venous thrombosis) I82.409 Hypertension I10 Glaucoma H40.9 Fatigue R53.83 Hypokalemia E87.6 (1) Metastatic disease Area of secondary neoplastic involvement: unspecified site Qualified Code(s): C79.9 - Secondary malignant neoplasm of unspecified site
[2020-06-21] MEDS ORDERED: POTASSIUM CHLORIDE 20 MEQ/15 ML UDC PO ONE (14:45)
--- NOTE | 2020-06-21 15:49 | Palliative Care Consultation ---
Date of Consultation June 21, 2020 Assessment & Plan (1) Palliative care encounter: This patient is a 74 year old male who presented to the [facility] ED with worsening lower extremity edema, hypoalbuminemia, and productive cough. Patient has an unfortunate medical history including metastatic colon cancer with metastasis to the liver. The patient most recently underwent chemotherapy infusion at the beginning of May but did not tolerate well. He is a patient of Dr. Land and per discussion with the family, was deemed not a good candidate for future therapy, despite reduction in dosing. Additional PMH includes: pleural effusion, PSVT, BPH s/p LUTS, worsening lower extremity edema and others. A CTA was performed shows moderate bilateral pleural effusions. Additionally, the patient had an abdominal and pelvic CT that showed mid transverse colon changes with nodual metastasis and multiple hepatic mets as well. Additionally, the patient has chronic T12 compression fracture. The patient is currently being treated for Pneumonia. Palliative Care was consulted to discuss goals of care. -I met with the patient in room 363. patients , Mariaelena, was at the bedside. -Patient sitting upright in his bed in no apparent distress. The patient has 2LNC on, and does appear winded with exertion. The patient does not use supplemental O2 at home. I discussed that he is being treated with pneumonia and his breathing may likely improve with treatment. patient and made it seem like they had not heard he has PNA. -Lengthy conversation regarding goals of care. 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. He stated that he would like to go home. -We talked about Home Health vs Hospice. Currently the patient has had [facility] Home Health before and would like to return with those services. -We talked about Hospice and its capabilities, even discussing revocation of services should the family decide it is not a good fit for them. For now, they would like to continue [facility] Home Health. -The patients states that he may be going home tomorrow, which, after discussion with the hospitalist is not the case. I agree that his breathing and pneumonia should be more resolved prior to discharge. -The patients states that she would be willing to transition to hospice should home health not be going well. -I presented a POLST form to the patients who will discuss with their son, Andrae, who is now living with them to help. Pt is a confirmed DNR/DNI. -Ultiamtely, the patient would qualify for Hospice with a few diagnosis options which include: 1. Metastatic colon cancer 2. Severe Protein Caloric Malnutrition -PPS: 30% -The above was discussed with the hospitalist, and case management department. (2) Colon cancer: (3) Metastatic disease: Area of secondary neoplastic involvement: unspecified site Qual ified Code(s): C79.9 - Secondary malignant neoplasm of unspecified site (4) Pneumonia: Laterality: unspecified laterality Lung location: lower lobe of lung Pneumonia type: due to unspecified organism Qualified Code(s): J18.9 - Pneumonia, unspecified organism (5) Anasarca: History of Present Illness Reason for Consultation: Goals of care Requesting Physician: Dr. Dickinson Attending Physician: Tylor Dickinson, DO History of Present Illness This patient is a 74 year old male who presented to the [facility] ED with worsening lower extremity edema, hypoalbuminemia, and productive cough. Patient has an unfortunate medical history including metastatic colon cancer with metastasis to the liver. The patient most recently underwent chemotherapy infusion at the beginning of May but did not tolerate well. He is a patient of Dr. Cabral's and per discussion with the family, was deemed not a good candidate for future therapy, despite reduction in dosing. Additional PMH includes: pleural effusion, PSVT, BPH s/p LUTS, worsening lower extremity edema and others. A CTA was performed shows moderate bilateral pleural effusions. Additionally, the patient had an abdominal and pelvic CT that showed mid transverse colon changes with nodual metastasis and multiple hepatic mets as well. Additionally, the patient has chronic T12 compression fracture. The patient is currently being treated for Pneumonia. Palliative Care was consulted to discuss goals of care. Please see A/P for further details. Thank you kindly for involving the palliative care team with this patient. Allergies Allergy/AdvReac Type Severity Reaction Status Date / Time ciprofloxacin Allergy Intermediate Rash Verified 06/20/20 21:20 Home Medications Home Medications Medication Instructions Recorded Confirmed Type dorzolamide 2 % eye drops 1 drp OPL BID ml 05/19/19 06/20/20 History latanoprost 0.005 % eye drops 1 drp OPL HS ml 05/19/19 06/20/20 History cholecalciferol (vitamin D3) 100 100 mcg PO QAM 04/11/20 06/20/20 History mcg (4,000 unit) capsule ondansetron HCl [Zofran] 4 mg PO DAILY PRN 04/26/20 06/20/20 History potassium chloride [Klor-Con 10] 10 meq PO QAM 04/26/20 06/20/20 History prochlorperazine maleate 10 mg PO Q6H PRN 04/26/20 06/20/20 History furosemide 20 mg PO QAM PRN #0 tab 05/06/20 06/20/20 Rx metoprolol succinate 200 mg 200 mg PO DAILY #30 tab 05/10/20 06/20/20 Rx tablet,extended release 24 hr rivaroxaban [Xarelto] 20 mg PO QDD 06/20/20 06/20/20 History Patient History Medical History Acute DVT (deep venous thrombosis) Anemia BPH (benign prostatic hyperplasia) per records/ denies Colon cancer DVT (deep venous thrombosis) Glaucoma Hyperlipidemia Metastases to the liver Pleural effusion Surgical History History of hernia surgery x 2 right and left ingunial Hx of cataract surgery left Family History Denies family history of Ovarian cancer Prostate cancer Diabetes Breast cancer Colorectal cancer Hypertension Social History Smoking Status: Never smoker Tobacco Type: Cigarettes Second Hand Exposure: No; Hx Alcohol Use: No Hx Substance Use: No Preferred Language: Australian Communication Ability: Effective Technical Applications Scientist Required: No Beliefs That Will Affect Care: None marital status: Current Living Situation: Spouse current occupational status: retired Feels Safe at Home: Yes Safety Concerns: Feels Safe At This Time caffeine: No Dental Care, Regularly: No Physical Activity Frequency: 1-2 Times per Week Seatbelt Use: always Sunscreen Use: No Assistive Devices: Oxygen - Continuous Review of Systems Review of Systems: General: Pt reports feeling overall weak. HEENT: Pt denies BRUCE, dizziness Resp: Pt reports + SOB with exertion CV: Pt denies chest pain, + swelling in both legs GI: Pt denies N/V/D : Pt denies dysuria Psych: pt denies depression Physical Exam Constitutional: + acute distress, + frail appearing and cooperative Eyes: PERRL, conjunctivae normal, anicteric sclerae ENMT: external ear and nose normal, oropharynx normal Neck: trachea midline, no thyromegaly Respiratory: + respiratory distress and + uses accessory muscles (with exertion) Auscultation: + diminished lung sounds and + rhonchi Cardiovascular: Rate/Rhythm: regular rate and regular rhythm Heart Sounds: normal S1 and normal S2 Vessels: dorsalis pedis pulses present and radial p ulses present Extremities: normal capillary refill and + edema Gastrointestinal (Abdomen): normal bowel sounds, soft, nontender, no hepatosplenomegaly Skin: no rashes, warm and dry + pallor Psychiatric: A+Ox3, euthymic affect Results & Data ([facility]) Vital Signs (Past 12 Hours) Vital Signs Temp Pulse Resp BP Pulse Ox 06/21/20 15:03 36.9 C 92 H 18 143/88 H 99 06/21/20 06:32 36.4 C L 89 22 132/87 100 06/21/20 06:00 89 20 114/74 98 06/21/20 04:54 36.5 C 92 H 16 121/83 94 PG Care Time/CCT Total # of Minutes Spent Total Time Spent with Patient: Total time spent is greater than 50% in coordination of care (as documented) at patient's floor/unit and/or counseling patient: 100 Coding Level of Care Code 47529 Inpt Consult Level 4 Diagnoses Palliative care encounter Z51.5 Colon cancer C18.9 Metastatic disease C79.9 Area of secondary neoplastic involvement: unspecified site Pneumonia J18.9 Laterality: unspecified laterality Lung location: lower lobe of lung Pneumonia type: due to unspecified organism Anasarca R60.1 Time Spent (min) 100 Time Spent Midlevel Total time spent 100 minutes with > 50% of that time spent assessing the patient, discussing goals of care, discussing a POLST form with the patient, his and collaborating with the IDT.
[2020-06-21] MEDS: HEPARIN 100 UNIT/ML 5ML FLUSH FLUSH PRN ×2 (16:18→22:06)
[2020-06-21] MEDS ORDERED: RIVAROXABAN 20 MG TAB PO SCH (16:30)
[2020-06-21] MEDS ORDERED: LATANOPROST 0.005% OP SOLN 2.5 ML BTL OPL SCH (21:00)
[2020-06-22] MEDS: PIPERACILLIN/TAZOBACTAM 3.375 GM in DEXTROSE 5% 100 ML IV SCH ×2 (02:02→09:38)
[2020-06-22] MEDS: HEPARIN 100 UNIT/ML 5ML FLUSH FLUSH PRN ×2 (05:55→16:38)
[2020-06-22 07:45] LABS: Eosinophils # (auto) 0.03 K/uL (0-0.5); Eosinophils % (auto) 0.2 %; Hemoglobin 10.1 g/dL (14.0-18.0); Immature Granulocytes % (auto) 0.6 %; Lymphocytes # (auto) 1.41 K/uL (1.2-3.4); Lymphocytes % (auto) 8.3 %; Mean Corpuscular Hemoglobin 27.9 pg (25-34); Mean Corpuscular Hgb Conc 29.7 g/dL (32-36); Mean Corpuscular Volume 93.9 fL (80-100); Mean Platelet Volume 10.4 fL (7.4-10.4); Monocytes # (auto) 0.95 K/uL (0.11-0.59); Monocytes % (auto) 5.6 %; Neutrophils % (auto) 85.3 %; Nucleated RBC # (auto) 0.02 K/uL (0-0); Nucleated RBC % (auto) 0.1 %; Platelet Count 150 K/uL (130-400); RDW Coefficient of Variation 23.3 % (11.5-14.5); RDW Standard Deviation 79.8 fL (36.4-46.3); Red Blood Count 3.62 M/uL (4.7-6.1); White Blood Count 17.09 K/uL (4.8-10.8)
[2020-06-22 08:05] LABS: Partial Thromboplastin Ratio > 5.0; Prothrombin Time 20.7 Seconds (9.0-12.0)
[2020-06-22 08:13] LABS: Albumin Level 1.3 gm/dl (3.4-5.0); BUN Creatinine Ratio 24.1 (10-20); Calcium 8.2 mg/dl (8.5-10.1); Creatinine Clr Calc Pharmacy 109.6 ml/min; Est GFR (African American) 112.5; Potassium 3.1 mmol/L (3.5-5.1)
[2020-06-22 08:14] LABS: Partial Thromboplastin Time > 139.0 Seconds (21.0-31.0)
[2020-06-22 08:16] LABS: Albumin Globulin Ratio 0.3 (0.9-2); Bilirubin,Total 1.4 mg/dl (0.2-1); Globulin 4.5 gm/dl (2.5-4.0); Total Protein 5.8 gm/dl (6.4-8.2)
[2020-06-22 08:23] LABS: Anisocytosis Present
[2020-06-22] MEDS ORDERED: POTASSIUM CHLORIDE 20 MEQ/15 ML UDC PO STA (08:36)
[2020-06-22] MEDS: CHOLECALCIFEROL 1,000 UNITS 25 MCG TAB PO SCH (08:43)
[2020-06-22] MEDS: METOPROLOL SUCC 50MG EXT REL TAB PO SCH (08:43)
[2020-06-22] MEDS: DORZOLAMIDE HCL 2% OPH SOLN 10 ML BTL OPL SCH (08:43)
[2020-06-22 09:35] LABS: Partial Thromboplastin Ratio 1.3; Partial Thromboplastin Time 37.3 Seconds (21.0-31.0); Prothrombin Time 20.2 Seconds (9.0-12.0)
--- NOTE | 2020-06-22 16:22 | Discharge Summary ---
Date of Service June 22, 2020 Admission HPI Per Admitting Provider The patient is a 74-year-old male with a past medical history including DVT, pleural effusion, PSVT, hypoalbuminemia, metastatic disease, peripheral edema, liver metastases, colon cancer, urethral stricture, BPH with LUTS, dyslipidemia, tachycardia, history of left inguinal hernia repair, compression fractures of lumbar and thoracic vertebrae and glaucoma. The patient presents to the emergency department with progressive metastatic colon cancer, worsening chronic peripheral edema and hypoalbuminemia. He also complains of some congested cough. Work-up in the emergency department included a CT of abdomen and pelvis with contrast which shows changes in mid transverse colon concerning for colon cancer with karli metastases. Innumerable hepatic metastases, confluent in the right hepatic lobe. Moderate ascites without free air. Anasarca. Multiple lumbar compression fractures that are chronic in appearance. CTA of chest shows moderate right and small left pleural effusions. 8 mm pulmonary nodule left lower lobe that is stable. Possible additional pulmonary micronodules in the left lung, with pulmonary metastatic disease not excluded. Chronic appearing T12 compression fracture. Principal Diagnosis Metastatic cancer, pneumonia Discharge Exam Constitutional WD/WN, vitals as above Respiratory normal respiratory effort, lungs clear to auscultation Cardiovascular RRR, no murmur, no edema Gastrointestinal (Abdomen) normal bowel sounds, soft, nontender, no hepatosplenomegaly Musculoskeletal generalized weakness Skin no rashes, warm and dry Neurologic moves all extremities and awake Psychiatric Orientation: alert and oriented x 3 Discharge Data Allergies Allergy/AdvReac Type Severity Reaction Status Date / Time ciprofloxacin Allergy Intermediate Rash Verified 06/20/20 21:20 Consultations 06/20/20 22:13 ED Decision to Admit Stat 06/20/20 23:46 Consult Case Management - Discharge Planning Routine Consult Palliative Care Routine Ordered Studies 06/20/20 20:18 CT abd pelvis IV con only Urgent CT angio chest PE protocol Urgent Hospital Course (1) Pneumonia: Continue vancomycin IV and Zosyn IV begun in the ED. MRSA swab negative, vanc discontinued. Will discharge patient with Augmentin bid for five more days CTA chest showed no PE, pleural effusions, bibasilar consolidation atelectasis vs pneumonia BC negative, urine culture pending (2) Metastatic disease: Metastatic colon cancer/anasarca/hypoalbuminemia/severe fatigue- Last treatment early May - per patient he was deemed too weak to continue treatments Mets to liver - moderate ascites on CT, INR is 2 Stop lasix and albumin and IVF - may want to consider paracentesis for ascites if patient is uncomfortable in the future Consulted palliative care Multiple discussions today with patient and family by myself and Dr. Dickinson. I discussed with patient that his overall prognosis is poor given his increasing INR and low albumin and cessation of further treatment for his progressive cancer. We discussed what his wishes were and goals including staying at the hospital for a few more days to ensure nothing grows in his cultures that could be treated vs going home with antibiotics. Patient and his family declined any services such as hospice or home health and patient wished to just go home. I did convey that I was worried about him going home without support from a home health or hospice agency but family feels they can support him without these services. Transportation home was discussed as I have concerns about his ability to get from his car into the house but his felt that she and her son could help him and declined. A wheelchair and oxygen wer ordered and delivered to the hospital for his discharge. Whether his INR/albumin numbers are nutritional vs decreasing liver function or both they are poor indicators going forward especially in light of his progressive metastasis to the liver and ascites. I did briefly update Dr. Cabral as he sees Mr. Luna outpatient, and he was in agreement that hospice would be a reasonable choice for the patient at this point in his disease process. (3) Anasarca: See above (4) Hypoalbuminemia: Albumin 1.3. Patient with anasarca and pleural effusions likely exacerbated by low protein. BNP is 2513 (5) DVT (deep venous thrombosis): Discontinued Xeralto as INR is 2.0 (6) Hypertension: Continue home metoprolol (7) Glaucoma: Continue usual eyedrops (8) Fatigue: See above (9) Hypokalemia: Replaced (10) Lactic acidosis: Repeat lactic acid 06/21 was 5.6. Given patient's hypertensive/normal blood pressure this is not due to hypoperfusion. It may be that the lactic acidosis is stemming from his colonic mass/cancer process rather than an infectious process. Total Time Total Time Spent Total Time Spent (In Minutes): greater than 30 minutes Discharge Plan Discharge Items Patient Disposition: Home - Self-Care Reason For Visit: PNEUMONIA METASTATIC CA Discharge Diagnosis: Metastatic cancer, pneumonia Activity: Resume your previous activity Non-emergency contact: Primary Care Provider Call non-emergency contact if: you have any medication questions Follow-up/Referrals: Madison Scott CRNP [Primary Care Provider] - (follow up one week please call to schedule appointment) Diet: Regular Addtl Attending Provider Instructions: (1) Pneumonia: You will complete 5 more days of antibiotics with Augmentin twice per day (2) DVT (deep venous thrombosis): Your blood is being thinned by the decrease in your liver function/decreased nutritional state. Please hold your Xeralto and follow up with Dr. Cabral. Pending Studies at Discharge: Yes Studies:: urine culture Stand-Alone Forms: [employer], Smoking Cessation Medications and DC Order Prescriptions: New amoxicillin-pot clavulanate [Augmentin] 875-125 mg tablet 1 tab PO BID Qty: 10 RF: 0 Continued dorzolamide 2 % drops 1 drp OPL BID RF: 0 latanoprost [Xalatan] 0.005 % drops 1 drp OPL HS RF: 0 cholecalciferol (vitamin D3) 100 mcg (4,000 unit) capsule 100 mcg PO QAM RF: 0 metoprolol succinate 200 mg tablet extended release 24 hr 200 mg PO DAILY Qty: 30 RF: 5 furosemide 20 mg tablet 20 mg PO QAM PRN (Reason: increased leg swelling) Qty: 0 RF: 0 ondansetron HCl [Zofran] 4 mg Tablet 4 mg PO DAILY PRN (Reason: Nausea) RF: 0 prochlorperazine maleate 10 mg Tablet 10 mg PO Q6H PRN (Reason: Nausea) RF: 0 potassium chloride [Klor-Con 10] 10 mEq tablet extended release 10 meq PO QAM RF: 0 Discontinued Xarelto 20 mg tablet 20 mg PO QDD RF: 0 Discharge Orders: Discharge Order (Routine); Ordered 06/22/20 Ordered By: Cherry Khan Admission Data Admit Date/Time: 06/20/20 22:55 Attending Provider: Tylor Dickinson Admit Provider: Michael Carter Primary Care Provider: Madison Scott Other Providers: Michael Carter ; Rufina Pavon Other Interventions: Discharge Summary Assessment (RN) Last Done: 06/22/20 17:01 Supervising Physician Co-Signing Physician Notes Patient seen and examined on the day of discharge. I agree with the discharge summary by Cherry WALKER. I have reviewed the chart including labs, imaging and plans for discharge. patient's lab values worsening today, INR is 2.0, he feels weak, mild dyspnea, no appetite, fortunately he denies pain discussed that his issues all stem from his worsening metastatic colon cancer called Dr Cabral to discuss with him, he recommended hospice care, no further chemotherapy planned talked with the patient and his about choosing hospice, hospice could provide all the services and assistance they would need at home they refused to accept hospice or home health explained again that if they have issues, questions regarding pain control, difficulty breathing, if they need medications, hospice would be their to help them quickly explained that hospice is certainly appropriate, that hospice would supply oxygen and bed at home again, they refused we arranged for home oxygen and a wheelchair to get the patient back home phone numbers for hospice were provided to patient and his family, they can call if they change their minds - Advanced metastatic colon cancer with mets in the liver, evidence of worsening liver function discharge to home with comfort measures supplied with home oxygen, hospital bed his family will provide care palliative care consultation completed while here, patient and family refused home hospice care but agree that he is DNR and they don't want further care - Possible pneumonia: complete a few more days of Augmentin Coding Level of Care Code D/C Day Management >30 mins Diagnoses Pneumonia J18.9 Metastatic disease C79.9 Area of secondary neoplastic involvement: unspecified site Anasarca R60.1 Hypoalbuminemia E88.09 DVT (deep venous thrombosis) I82.409 Hypertension I10 Glaucoma H40.9 Fatigue R53.83 Hypokalemia E87.6 Lactic acidosis E87.2
== END 2020-06-22 17:30 | disposition home or self-care (01) | DRG 193 ==
LOC: ED 19:02 → SUATTDRO 22:55 → 3W 22:55